=== PATIENT | female | born 1995 | race Hispanic/Latino ===

== ENCOUNTER 2018-04-02 14:44 | Emergency (ER) | payer SELFPAY ==
--- NOTE | 2018-04-02 16:16 | ER ---
Nurse's Notes [facility] Name: Joya Cortez Age: 23 yrs Sex: Female : 1995 Arrival Date: 04/02/2018 Time: 14:46 Bed Treatment Private MD: None, None Diagnosis: Acute pharyngitis Presentation: 04/02 14:55 Presenting complaint: Patient states: Left ear pain, sore throat for 2-3 days now, sg reports feeling ill but denies N/V/D/F. Transition of care: patient was not received from another setting of care. Onset of symptoms was April 02, 2018. Risk Assessment: Do you want to hurt yourself or someone else? Patient reports no desire to harm self or others. Initial Sepsis Screen: Does the patient meet any 2 criteria? No. Patient's initial sepsis screen is negative. Does the patient have a suspected source of infection? No. Patient's initial sepsis screen is negative. Care prior to arrival: None. 14:55 Method Of Arrival: Ambulatory sg 14:55 Acuity: MICHELLE 4 sg Triage Assessment: 16:34 General: Appears in no apparent distress. Behavior is calm, cooperative. 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 - Social history:: Smoking status: Patient/guardian denies using tobacco. - Ebola Screening: : Patient negative for fever greater than or equal to 101.5 degrees Fahrenheit, and additional compatible Ebola Virus Disease symptoms Patient denies exposure to infectious person Patient denies travel to an Ebola-affected area in the 21 days before illness onset No symptoms or risks identified at this time. Screenin:30 Abuse screen: Denies threats or abuse. Denies injuries from another. Nutritional iw screening: No deficits noted. Tuberculosis screening: No symptoms or risk factors identified. Fall Risk None identified. Assessment: 15:30 General: Appears in no apparent distress. Behavior is calm, cooperative. Pain: iw Complains of pain in throat. Neuro: Level of Consciousness is awake, alert, obeys commands, Oriented to person, place, time, situation. Cardiovascular: Patient's skin is warm and dry. Respiratory: Airway is patent Respiratory effort is even, unlabored, Breath sounds are clear bilaterally. EENT: Throat is reddened bilaterally. Derm: Skin is intact, is healthy with good turgor. Musculoskeletal: Range of motion: intact in all extremities. Vital Signs: 14:56 Pulse 87; Resp 16 S; Pulse Ox 98% on R/A; Weight 106.59 kg (R); Height 5 ft. 6 in. sg (167.64 cm) (R); Pain 6/10; 14:56 Body Mass Index 37.93 (106.59 kg, 167.64 cm) sg ED Course: 14:46 Patient arrived in ED. sb2 14:47 None, None is Private Physician. sb2 14:51 Nenita Hinojosa, RN is Primary Nurse. iw 14:55 Arm band placed on. sg 14:56 Triage completed. sg 14:56 Kay Ling FNP-C is [facility]. kb 14:56 Tj Isbell MD is Attending Physician. kb 15:35 Patient has correct armband on for positive identification. iw 16:33 No provider procedures requiring assistance completed. Patient did not have IV access iw during this emergency room visit. Administered Medications: No medications were administered Outcome: 16:15 Discharge ordered by MD. kb 16:33 Discharged to home ambulatory. iw 16:33 Condition: good 16:33 Discharge instructions given to patient, Instructed on discharge instructions, follow up and referral plans. medication usage, Demonstrated understanding of instructions, follow-up care, medications. 16:34 Patient left the ED. iw Signatures: Kay Ling FNP-C FNP-Feliberto Villanueva, RN RN Nenita Hinojosa, RN RN iw Yun Peña sb2 Corrections: (The following items were deleted from the chart) 19:29 16:33 Discharge instructions given to patient, Instructed on discharge instructions, iw follow up and referral plans. medication usage, Demonstrated understanding of instructions, follow-up care, medications, Prescriptions given X 1, iw
--- NOTE | 2018-04-02 16:16 | EDPHYS ---
Physician Documentation [facility] Name: Joya Cortez Age: 23 yrs Sex: Female : 1995 Arrival Date: 04/02/2018 Time: 14:46 Bed Treatment Private MD: None, None ED Physician Tj Isbell HPI: 04/02 15:29 This 23 yrs old Female presents to ER via Ambulatory with complaints of Sore kb Throat, Ear Pain. 15:29 The patient presents with sore throat. The patient describes throat pain as constant. kb Onset: The symptoms/episode began/occurred 3 day(s) ago. Severity of symptoms: At their worst the symptoms were moderate, in the emergency department the symptoms are unchanged. Modifying factors: The symptoms are alleviated by nothing, the symptoms are aggravated by swallowing, Patient's oral intake status: good. Associated signs and symptoms: Pertinent positives: fever, flu-like symptoms, malaise, Sore throat. The patient has not experienced similar symptoms in the past. The patient has not recently seen a physician. 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 - Social history:: Smoking status: Patient/guardian denies using tobacco. - Ebola Screening: : Patient negative for fever greater than or equal to 101.5 degrees Fahrenheit, and additional compatible Ebola Virus Disease symptoms Patient denies exposure to infectious person Patient denies travel to an Ebola-affected area in the 21 days before illness onset No symptoms or risks identified at this time. ROS: 15:28 Cardiovascular: Negative for chest pain, palpitations, and edema, Respiratory: Negative kb for shortness of breath, cough, wheezing, and pleuritic chest pain, Abdomen/GI: Negative for abdominal pain, nausea, vomiting, diarrhea, and constipation, Back: Negative for injury and pain, : Negative for injury, bleeding, discharge, and swelling, MS/Extremity: Negative for injury and deformity, Skin: Negative for injury, rash, and discoloration, Neuro: Negative for headache, weakness, numbness, tingling, and seizure. 15:28 Constitutional: Positive for chills, fever, Negative for body aches, fatigue, malaise, poor PO intake, weight loss. 15:28 ENT: Positive for ear pain, sore throat. Exam: 15:28 Constitutional: This is a well developed, well nourished patient who is awake, alert, kb and in no acute distress. Head/Face: Normocephalic, atraumatic. Chest/axilla: Normal chest wall appearance and motion. Nontender with no deformity. No lesions are appreciated. Cardiovascular: Regular rate and rhythm with a normal S1 and S2. No gallops, murmurs, or rubs. Normal PMI, no JVD. No pulse deficits. Respiratory: Lungs have equal breath sounds bilaterally, clear to auscultation and percussion. No rales, rhonchi or wheezes noted. No increased work of breathing, no retractions or nasal flaring. Abdomen/GI: Soft, non-tender, with normal bowel sounds. No distension or tympany. No guarding or rebound. No evidence of tenderness throughout. Skin: Warm, dry with normal turgor. Normal color with no rashes, no lesions, and no evidence of cellulitis. MS/ Extremity: Pulses equal, no cyanosis. Neurovascular intact. Full, normal range of motion. Neuro: Awake and alert, GCS 15, oriented to person, place, time, and situation. Cranial nerves II-XII grossly intact. Motor strength 5/5 in all extremities. Sensory grossly intact. Cerebellar exam normal. Normal gait. 15:28 ENT: External ear(s): are unremarkable, Ear canal(s): are normal, TM's: are normal, Nose: is normal, Mouth: is normal, Posterior pharynx: Airway: normal, no evidence of obstruction, Tonsils: bilaterally enlarged, with erythema, Uvula: normal, midline, swelling, that is moderate, erythema, that is moderate, exudate, is not appreciated. Vital Signs: 14:56 Pulse 87; Resp 16 S; Pulse Ox 98% on R/A; Weight 106.59 kg (R); Height 5 ft. 6 in. sg (167.64 cm) (R); Pain 6/10; 14:56 Body Mass Index 37.93 (106.59 kg, 167.64 cm) MDM: 14:56 Patient medically screened. kb 15:28 Data reviewed: vital signs, nurses notes. Data interpreted: Pulse oximetry: on room air kb is 98 %. Interpretation: normal. 16:15 Counseling: I had a detailed discussion with the patient and/or guardian regarding: the kb historical points, exam findings, and any diagnostic results supporting the discharge/admit diagnosis, lab results, the need for outpatient follow up, a family practitioner, to return to the emergency department if symptoms worsen or persist or if there are any questions or concerns that arise at home. 04/02 15:06 Order name: Flu; Complete Time: 16:13 kb 04/02 15:06 Order name: Strep; Complete Time: 15:39 kb 04/02 15:39 Order name: Throat Culture EDMS Administered Medications: No medications were administered Disposition: 04/03 07:24 Co-signature as Attending Physician, Tj Isbell MD I agree with the assessment and katherin plan of care. Disposition: 04/02/18 16:15 Discharged to Home. Impression: Acute pharyngitis. - Condition is Stable. - Discharge Instructions: Pharyngitis, [id number]. - Medication Reconciliation Form, Thank You Letter, Antibiotic Education, Prescription Opioid Use, Work release form, Family Work Release form. - Follow up: Emergency Department; When: As needed; Reason: Worsening of condition. Follow up: Private Physician; When: 2 - 3 days; Reason: Recheck today's complaints, Continuance of care, Re-evaluation by your physician. Signatures: Dispatcher [employer] EDNE Kay Ling, MOHAMUD-C ACETYLENE TORCH BURNER-Feliberto Villanueva, Tj Limon RN, MD MD cha Williams, Irene, RN RN iw Corrections: (The following items were deleted from the chart) 04/02 16:34 16:15 04/02/2018 16:15 Discharged to Home. Impression: Acute pharyngitis. Condition is iw Stable. Forms are Medication Reconciliation Form, Thank You Letter, Antibiotic Education, Prescription Opioid Use. Follow up: Emergency Department; When: As needed; Reason: Worsening of condition. Follow up: Private Physician; When: 2 - 3 days; Reason: Recheck today's complaints, Continuance of care, Re-evaluation by your physician. kb
[2018-04-02 16:38] VITALS: O2SAT 98
== END 2018-04-02 16:34 | disposition home or self-care (01) ==
LOC: ER 14:44
DX: J02.9 Acute pharyngitis, unspecified (principal); Z91.018 Allergy to other foods
CPT/HCPCS: 87070; 87081; 87804; 99281

== ENCOUNTER 2019-06-18 09:25 | Emergency (ER) | payer SELFPAY ==
[2019-06-18 11:23] LABS: Absolute Lymphocytes (CBC) 1.7 K/uL (0.7-4.9); Basophils % 0.5 % (0-1.3); Lymphocytes % 19.4 % (15.3-44.8); MPV 9.7 fL (7.6-11.3); RBC Red Blood Cell Count 4.53 M/uL (3.86-4.86)
[2019-06-18 11:24] LABS: Urine Bacteria >50 /HPF (<20); Urine Culture Reflex Order NOT NEEDED; Urine Mucus HEAVY /HPF (NONE SEEN); Urine RBC <5 /HPF (NONE SEEN)
--- NOTE | 2019-06-18 11:27 | RAD REPORT ---
EXAM DESCRIPTION: US - Transvaginal OB - 06/18/2019 11:20 am CLINICAL HISTORY: Abd cramping, ;Vaginal bleeding COMPARISON: OB Complete dated 05/12/2016 FINDINGS: A single gestational sac is seen within the uterus. The shape of the sac is within normal limits for gestational age. Within the sac is a single pole with crown-rump length of 9 mm, cor relating to estimated gestational age of 6 weeks 6 days. Estimated date of delivery is 02/05/2020. Heart rate is 127 BPM. The placenta is not yet developed due to early gestational age. Several small cystic areas along the inferior margin of the sac probably represents small subchorionic bleed, measuring about 1 cm in tota lity. The maternal adnexa and ovaries are within normal limits. Normal Doppler blood flow was demonstrated to both ovaries. IMPRESSION: Single live early intrauterine gestation with estimated gestational age of 6 weeks 6 day s, LUCA 02/05/2020. Several cystic areas along the inferior margin of the sac likely represent small subchorionic bleeds.
[2019-06-18 11:37] LABS: BUN Blood Urea Nitrogen 7 mg/dL (7-18); Bicarbonate 25 mmol/L (21-32); Glucose Level 98 mg/dL (74-106); HCG, Quantitative 50394 mIU/mL (1-3); Potassium 3.9 mmol/L (3.5-5.1); Sodium Level 137 mmol/L (136-145)
--- NOTE | 2019-06-18 12:29 | EDPHYS ---
Physician Documentation [facility] Name: Joya Cortez Age: 24 yrs Sex: Female : 1995 Arrival Date: 06/18/2019 Time: 09:27 Bed 7 Private MD: ED Physician Gaston Tejada HPI: 06/18 11:48 This 24 yrs old Female presents to ER via Ambulatory with complaints of rn Abdominal Pain, Vaginal Bleeding, + Preg <12wks. 11:48 The patient presents to the emergency department with abdominal pain, vaginal bleeding. rn The estimated gestational age is 6 weeks. Previous pregnancies: in previous pregnancies patient has had no complications. The patient has not experienced similar symptoms in the past. Reports lower abd cramping, vaginal spotting, no urinary symptoms, no trauma. reports blood type O+. . 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 - Social history:: Smoking status: Patient/guardian denies using tobacco. - Ebola Screening: : Patient denies exposure to infectious person Patient denies travel to an Ebola-affected area in the 21 days before illness onset. - Family history:: not pertinent. - Hospitalizations: : No recent hospitalization is reported. ROS: 11:48 Constitutional: Negative for fever, chills, and weight loss, Eyes: Negative for injury, rn pain, redness, and discharge, Neck: Negative for injury, pain, and swelling, Cardiovascular: Negative for chest pain, palpitations, and edema, Respiratory: Negative for shortness of breath, cough, wheezing, and pleuritic chest pain, Abdomen/GI: Negative for nausea, vomiting, diarrhea, and constipation, MS/Extremity: Negative for injury and deformity, Skin: Negative for injury, rash, and discoloration, Neuro: Negative for headache, weakness, numbness, tingling, and seizure. Exam: 11:48 Constitutional: This is a well developed, well nourished patient who is awake, alert, rn and in no acute distress. Head/Face: Normocephalic, atraumatic. Cardiovascular: Regular rate and rhythm. No pulse deficits. Respiratory: No increased work of breathing, no retractions or nasal flaring. Abdomen/GI: soft, non-tender Skin: Warm, dry with normal turgor. Normal color with no rashes, no lesions, and no evidence of cellulitis. MS/ Extremity: Pulses equal, no cyanosis. Neurovascular intact. Full, normal range of motion. Equal circumference. Neuro: Awake and alert, GCS 15, oriented to person, place, time, and situation. Cranial nerves II-XII grossly intact. Motor strength 5/5 in all extremities. Sensory grossly intact. Cerebellar exam normal. Normal gait. Vital Signs: 09:46 BP 116 / 63; Pulse 70; Resp 16; Temp 97.2(TE); Pulse Ox 100% on R/A; Height 5 ft. 7 in. ss (170.18 cm); Pain 6/10; 10:36 BP 124 / 71; Pulse 59; Resp 16; Pulse Ox 99% ; sv 11:45 BP 115 / 57; Pulse 60; Resp 16; Pulse Ox 100% ; sv 12:45 BP 111 / 60; Pulse 61; Resp 16; Pulse Ox 99% ; sv MDM: 10:30 Patient medically screened. rn 11:48 Differential diagnosis: ectopic . Data reviewed: vital signs, nurses notes, rn telemetry test result(s), radiologic studies, and as a result, I will discharge patient. Counseling: I had a detailed discussion with the patient and/or guardian regarding: the historical points, exam findings, and any diagnostic results supporting the discharge/admit diagnosis, lab results, radiology results, the need for outpatient follow up, to return to the emergency department if symptoms worsen or persist or if there are any questions or concerns that arise at home. Special discussion: I discussed with the patient/guardian in detail that at this point there is no indication for admission to the hospital. It is understood, however, that if the symptoms persist or worsen the patient needs to return immediately for re-evaluation. Based on the history and exam findings, there is no indication for further emergent testing or inpatient evaluation. I discussed with the patient/guardian the need to see the OB Gyne specialist for further evaluation of the symptoms. ED course: + IUP with estimated age 6w6d, + bacteriuria, will dc home with close OB f/u and macrobid. . 06/18 10:34 Order name: Quantitative Hcg; Complete Time: 11:46 rn 06/18 10:34 Order name: Abo/rh Typing; Complete Time: 12:26 rn 06/18 10:34 Order name: Basic Metabolic Panel; Complete Time: 11:46 rn 06/18 10:34 Order name: CBC with Diff; Complete Time: 11:46 rn 06/18 10:42 Order name: Urine Microscopic Only; Complete Time: 11:46 rn 06/18 10:52 Order name: Urine Dipstick--Ancillary (enter results) bd 06/18 10:34 Order name: Urine Test (obtain specimen); Complete Time: 10:57 rn 06/18 10:34 Order name: IV Saline Lock; Complete Time: 10:57 rn 06/18 10:34 Order name: Labs collected and sent; Complete Time: 10:57 rn 06/18 10:34 Order name: NPO; Complete Time: 10:57 rn 06/18 10:34 Order name: Urine Dipstick-Ancillary (obtain specimen); Complete Time: 10:57 rn 06/18 10:42 Order name: US Transvaginal Ob; Complete Time: 11:46 rn 06/18 10:52 Order name: Urine --Ancillary (enter results) bd Administered Medications: No medications were administered Disposition: 06/18/19 12:28 Discharged to Home. Impression: Threatened , Urinary tract infection, site not specified. - Condition is Stable. - Discharge Instructions: Threatened Miscarriage, Urinary Tract Infection, Adult, Vaginal Bleeding During , First Trimester, Pelvic Rest. - Prescriptions for Macrobid 100 mg Oral Capsule - take 1 capsule by ORAL route every 12 hours for 7 days; 14 capsule. - Work release form, Medication Reconciliation Form, Thank You Letter, Antibiotic Education, Prescription Opioid Use form. - Follow up: Private Physician; When: As needed; Reason: Recheck today's complaints, Re-evaluation by your physician. - Problem is new. - Symptoms have improved. Signatures: Dispatcher [employer] Shaila Hall RN RN sv Nieto, Roman, MD MD rn Smirch, Shelby, RN RN ss Corrections: (The following items were deleted from the chart) 13:03 12:28 06/18/2019 12:28 Discharged to Home. Impression: Threatened ; Urinary sv tract infection, site not specified. Condition is Stable. Forms are Medication Reconciliation Form, Thank You Letter, Antibiotic Education, Prescription Opioid Use. Follow up: Private Physician; When: As needed; Reason: Recheck today's complaints, Re-evaluation by your physician. Problem is new. Symptoms have improved. rn
--- NOTE | 2019-06-18 12:29 | ER ---
Nurse's Notes [facility] Name: Joya Cortez Age: 24 yrs Sex: Female : 1995 Arrival Date: 06/18/2019 Time: 09:27 Bed 7 Private MD: Diagnosis: Threatened ;Urinary tract infection, site not specified Presentation: 06/18 09:45 Presenting complaint: Patient states: "I think I'm 7 weeks and 6 days . I ss started spotting and having cramps this morning.". Transition of care: patient was not received from another setting of care. Onset of symptoms was June 18, 2019. Risk Assessment: Do you want to hurt yourself or someone else? Patient reports no desire to harm self or others. Initial Sepsis Screen: Does the patient meet any 2 criteria? No. Patient's initial sepsis screen is negative. Does the patient have a suspected source of infection? No. Patient's initial sepsis screen is negative. Care prior to arrival: None. 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 - Social history:: Smoking status: Patient/guardian denies using tobacco. - Ebola Screening: : Patient denies exposure to infectious person Patient denies travel to an Ebola-affected area in the 21 days before illness onset. - Family history:: not pertinent. - Hospitalizations: : No recent hospitalization is reported. Screenin:35 Abuse screen: Denies threats or abuse. Denies injuries from another. Nutritional sv screening: No deficits noted. Tuberculosis screening: No symptoms or risk factors identified. Fall Risk None identified. Assessment: 10:40 General: Appears in no apparent distress. comfortable, well developed, Behavior is sv calm, cooperative, appropriate for age. Pain: Complains of pain in right lower quadrant and left lower quadrant. Neuro: Level of Consciousness is awake, alert, obeys commands, Oriented to person, place, time, situation, Moves all extremities. Full function Gait is steady, Speech is normal. Respiratory: Airway is patent Respiratory effort is even, unlabored, Respiratory pattern is regular, symmetrical. GI: Abdomen is round non-distended, Abd is soft X 4 quads Abdomen is tender to palpation in right lower quadrant and left lower quadrant. : Reports vaginal bleeding that is spotty. Derm: Skin is pink, warm \\T\\ dry. 12:00 Reassessment: Patient appears in no apparent distress at this time. No changes from sv previously documented assessment. Patient and/or family updated on plan of care and expected duration. Pain level reassessed. Patient is alert, oriented x 3, equal unlabored respirations, skin warm/dry/pink. 13:00 Reassessment: Patient appears in no apparent distress at this time. No changes from sv previously documented assessment. Patient and/or family updated on plan of care and expected duration. Pain level reassessed. Patient is alert, oriented x 3, equal unlabored respirations, skin warm/dry/pink. Vital Signs: 09:46 BP 116 / 63; Pulse 70; Resp 16; Temp 97.2(TE); Pulse Ox 100% on R/A; Height 5 ft. 7 in. ss (170.18 cm); Pain 6/10; 10:36 BP 124 / 71; Pulse 59; Resp 16; Pulse Ox 99% ; sv 11:45 BP 115 / 57; Pulse 60; Resp 16; Pulse Ox 100% ; sv 12:45 BP 111 / 60; Pulse 61; Resp 16; Pulse Ox 99% ; sv ED Course: 09:27 Patient arrived in ED. rg4 09:46 Triage completed. ss 09:46 Arm band placed on right wrist. ss 10:27 Shaila Sears, RN is Primary Nurse. sv 10:30 Gaston Tejada MD is Attending Physician. rn 10:35 Patient has correct armband on for positive identification. Placed in gown. Bed in low sv position. Call light in reach. Pulse ox on. NIBP on. Door closed. Warm blanket given. Head of bed elevated. 10:35 Urine collected: clean catch specimen. sv 10:51 Inserted saline lock: 22 gauge in left antecubital area, using aseptic technique. kj1 10:51 Initial lab(s) drawn, by me, sent to lab. kj1 10:58 Awaiting lab results, Awaiting: Ultrasound. sv 11:23 US Transvaginal Ob In Process Unspecified. EDMS 13:02 No provider procedures requiring assistance completed. IV discontinued, intact, sv bleeding controlled, No redness/swelling at site. Pressure dressing applied. Administered Medications: No medications were administered Outcome: 12:28 Discharge ordered by . rn 13:03 Discharged to home ambulatory. sv 13:03 Condition: stable 13:03 Discharge instructions given to patient, Instructed on discharge instructions, follow up and referral plans. medication usage, pelvic rest Demonstrated understanding of instructions, follow-up care, medications, pelvic rest Prescriptions given X 1. 13:03 Patient left the ED. sv Signatures: Dispatcher [employer] [facility] Shaila Sears RN Gaston Jarvis MD MD rn Smirch, Shelby, RN RN ss Garcia, Rubi rg4 Dominique Ling kj1 Corrections: (The following items were deleted from the chart) 10:53 10:51 Initial lab(s) drawn, by me, sent to lab. held in ED. kj1 kj1
[2019-06-18 13:18] VITALS: TEMP 97.2
[2019-06-18 13:22] VITALS: BP 111/60; O2SAT 99
[2019-06-18 16:09] LABS: Urine Blood NEGATIVE (NEG); Urine Glucose NEGATIVE (NEG); Urine Protein NEGATIVE (NEG)
== END 2019-06-18 13:03 | disposition home or self-care (01) ==
LOC: ER 09:25
DX: O20.0 Threatened abortion (principal); O23.41 Unspecified infection of urinary tract in pregnancy, first trimester; Z3A.01 Less than 8 weeks gestation of pregnancy; Z91.018 Allergy to other foods
CPT/HCPCS: 36415; 76817; 80048; 81003; 81015; 81025; 84702; 85025; 86900; 86901; 99284

== ENCOUNTER 2019-10-23 13:38 | Emergency (ER) | payer OTHER ==
[2019-10-23 16:09] VITALS: TEMP 98.3
[2019-10-23 16:11] VITALS: O2SAT 100
[2019-10-23 16:12] VITALS: BP 108/63
== END 2019-10-23 16:03 | disposition home or self-care (01) ==
LOC: ER 13:38
DX: O23.42 Unspecified infection of urinary tract in pregnancy, second trimester (principal); O26.22 Pregnancy care for patient with recurrent pregnancy loss, second trimester; Z3A.24 24 weeks gestation of pregnancy; Z91.018 Allergy to other foods
CPT/HCPCS: 96365; 96361; 87088; 85025; 87086; 80048; 36415; 86900; 81025; 86901; 80076; 81003; 83690; 96375; 99284; J0696; J7030; J2405

== ENCOUNTER 2020-01-06 15:51 | Emergency (ER) | payer BC, OTHER ==
--- NOTE | 2020-01-06 16:23 | ER ---
Nurse's Notes [facility] Name: Joya Cortez Age: 24 yrs Sex: Female : 1995 Arrival Date: 01/06/2020 Time: 15:53 Bed 5 Private MD: Diagnosis: Anxiety disorder, unspecified;Nausea and vomiting Presentation: 01/05 16:00 Chief complaint: Patient states: I have been having panic attacks and throwing up since ca1 last night. I was here at L\T\D last night because I was having contractions, I was discharged then started having panic attacks. Coronavirus screen: Proceed with normal triage. Patient denies a cough. Patient denies shortness of breath or difficulty breathing. Patient denies measured and/or subjective temperature greater than 100.4F prior to today's visit. Patient denies travel on a cruise ship or to a country the [facility] currently lists as an affected area. Patient denies contact with known and/or suspected case of COVID-19. Ebola Screen: Patient negative for fever greater than or equal to 101.5 degrees Fahrenheit, and additional compatible Ebola Virus Disease symptoms Patient denies exposure to infectious person. Patient denies travel to an Ebola-affected area in the 21 days before illness onset. No symptoms or risks identified at this time. Initial Sepsis Screen: Does the patient meet any 2 criteria? No. Patient's initial sepsis screen is negative. Does the patient have a suspected source of infection? No. Patient's initial sepsis screen is negative. Risk Assessment: Do you want to hurt yourself or someone else? Patient reports no desire to harm self or others. Onset of symptoms was January 06, 2020. 16:00 Method Of Arrival: Ambulatory ca1 16:00 Acuity: MICHELLE 3 ca1 Triage Assessment: 16:00 General: Appears in no apparent distress. comfortable, obese, Behavior is cooperative, bp appropriate for age, anxious. Pain: Denies pain. EENT: No deficits noted. Neuro: No deficits noted. Cardiovascular: No deficits noted. Respiratory: No deficits noted. GI: No signs and/or symptoms were reported involving the gastrointestinal system. : Reports cramping. Derm: No deficits noted. Musculoskeletal: No deficits noted. 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 - Social history:: Smoking status: Patient denies any tobacco usage or history of. Screenin:00 Abuse screen: Denies threats or abuse. Denies injuries from another. Nutritional bp screening: No deficits noted. Tuberculosis screening: No symptoms or risk factors identified. Fall Risk None identified. Assessment: 16:00 General: SEE TRIAGE NOTE. bp 16:59 Reassessment: NO VOMITING OR S/S ANXIETY AT THIS TIME. bp 18:42 Reassessment: PT D/C HOME AMBULATORY WITH FAMILY, DX WITH ANXIETY D/O AND bp NAUSEA/VOMITING. Vital Signs: 16:00 BP 105 / 61; Pulse 87; Resp 19 S; Temp 97.7(TE); Pulse Ox 97% on R/A; Weight 97.98 kg ca1 (R); Height 5 ft. 7 in. (170.18 cm) (R); 17:00 BP 115 / 63; Pulse 85; Resp 17; Pulse Ox 97% ; bp 18:30 BP 111 / 65; Pulse 75; Resp 16; Temp 98; Pulse Ox 98% ; bp 16:00 Body Mass Index 33.83 (97.98 kg, 170.18 cm) ca1 Vitals: 16:58 Heart Tones 165. bp ED Course: 15:53 Patient arrived in ED. as 16:00 Patient has correct armband on for positive identification. Bed in low position. Call bp light in reach. Side rails up X2. 16:03 Triage completed. ca1 16:04 Arm band placed on right wrist. ca1 16:12 Carmela [facility] F[facility]-C [facility]. snw 16:12 Ke Walton MD is Attending Physician. snw 16:18 Landon Porter, BENJAMIN is Primary Nurse. bp 18:44 No provider procedures requiring assistance completed. Patient did not have IV access bp during this emergency room visit. Administered Medications: 16:30 Drug: Phenergan 25 mg Route: PO; bp 16:57 Follow up: Response: No adverse reaction; Nausea is decreased bp Outcome: 16:23 Discharge ordered by MD. richardson 18:44 Discharged to home ambulatory, with family. bp 18:44 Condition: stable 18:44 Discharge instructions given to patient, Instructed on discharge instructions, follow up and referral plans. medication usage, Demonstrated understanding of instructions, follow-up care, medications, Prescriptions given X 1. 18:44 Patient left the ED. bp Signatures: Carmela Garcia, DIAL REFINISHER-C DIAL REFINISHER-Karina Oates Brian, RN RN bp AcobParis RN RN ca1
--- NOTE | 2020-01-06 16:23 | EDPHYS ---
Physician Documentation [facility] Name: Joya Cortez Age: 24 yrs Sex: Female : 1995 Arrival Date: 01/06/2020 Time: 15:53 Bed 5 Private MD: ED Physician Ke Walton HPI: 01/05 16:34 This 24 yrs old Female presents to ER via Ambulatory with complaints of snw Anxiety - 35 wks preg. 16:34 The patient presents to the emergency department with anxiety, "over everything". snw Onset: The symptoms/episode began/occurred couple of weeks culminating last pm.. Past psychiatric history: Prior diagnosis: anxiety. Associated signs and symptoms: Pertinent positives; nausea, vomiting. Severity of symptoms: At their worst the symptoms were moderate severe. The patient has experienced similar episodes in the past. The patient has been recently seen by a physician: pt was in L\\T\\D yesterday and checked. No complications to per report. 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 - Social history:: Smoking status: Patient denies any tobacco usage or history of. ROS: 16:34 Eyes: Negative for injury, pain, redness, and discharge, ENT: Negative for injury, snw pain, and discharge, Neck: Negative for injury, pain, and swelling, Cardiovascular: Negative for chest pain, palpitations, and edema, Respiratory: Negative for shortness of breath, cough, wheezing, and pleuritic chest pain. 16:34 Back: Negative for injury and pain, MS/Extremity: Negative for injury and deformity, Skin: Negative for injury, rash, and discoloration, Neuro: Negative for headache, weakness, numbness, tingling, and seizure. 16:34 Constitutional: Positive for anxiety, panic attacks, "it's been a long couple of weeks". 16:34 Abdomen/GI: Positive for nausea and vomiting. 16:34 : Negative for urinary symptoms, urinary frequency, small amounts, hematuria, pelvic pain, burning with urination, vaginal bleeding, vaginal discharge, vaginal itching. 16:34 Psych: Positive for anxiety. Exam: 16:33 Constitutional: This is a well developed, well nourished patient who is awake, alert, snw and in no acute distress. Head/Face: Normocephalic, atraumatic. Eyes: Pupils equal round and reactive to light, extra-ocular motions intact. Lids and lashes normal. Conjunctiva and sclera are non-icteric and not injected. Cornea within normal limits. Periorbital areas with no swelling, redness, or edema. ENT: Nares patent. No nasal discharge, no septal abnormalities noted. Tympanic membranes are normal and external auditory canals are clear. Oropharynx with no redness, swelling, or masses, exudates, or evidence of obstruction, uvula midline. Mucous membranes moist. Neck: Trachea midline, no thyromegaly or masses palpated, and no cervical lymphadenopathy. Supple, full range of motion without nuchal rigidity, or vertebral point tenderness. No Meningismus. Chest/axilla: Normal chest wall appearance and motion. Nontender with no deformity. No lesions are appreciated. Cardiovascular: Regular rate and rhythm with a normal S1 and S2. No gallops, murmurs, or rubs. Normal PMI, no JVD. No pulse deficits. Respiratory: Lungs have equal breath sounds bilaterally, clear to auscultation and percussion. No rales, rhonchi or wheezes noted. No increased work of breathing, no retractions or nasal flaring. 16:33 Back: No spinal tenderness. No costovertebral tenderness. Full range of motion. Skin: Warm, dry with normal turgor. Normal color with no rashes, no lesions, and no evidence of cellulitis. MS/ Extremity: Pulses equal, no cyanosis. Neurovascular intact. Full, normal range of motion. Neuro: Awake and alert, GCS 15, oriented to person, place, time, and situation. Cranial nerves II-XII grossly intact. Motor strength 5/5 in all extremities. Sensory grossly intact. Cerebellar exam normal. Normal gait. 16:33 Abdomen/GI: Inspection: gravid appearance, is noted, obese Bowel sounds: normal, Palpation: abdomen is soft and non-tender, in all quadrants. 16:33 Psych: Behavior/mood is pleasant, cooperative, anxious, Affect is calm, Patient has no thoughts/intents to harm self or others. Memory is normal. Vital Signs: 16:00 BP 105 / 61; Pulse 87; Resp 19 S; Temp 97.7(TE); Pulse Ox 97% on R/A; Weight 97.98 kg ca1 (R); Height 5 ft. 7 in. (170.18 cm) (R); 17:00 BP 115 / 63; Pulse 85; Resp 17; Pulse Ox 97% ; bp 18:30 BP 111 / 65; Pulse 75; Resp 16; Temp 98; Pulse Ox 98% ; bp 16:00 Body Mass Index 33.83 (97.98 kg, 170.18 cm) ca1 MDM: 16:19 Patient medically screened. snw 16:32 Data reviewed: vital signs, nurses notes. Data interpreted: Pulse oximetry: on room air snw is 97 %. Interpretation: normal. Counseling: I had a detailed discussion with the patient and/or guardian regarding: the historical points, exam findings, and any diagnostic results supporting the discharge/admit diagnosis, the need for outpatient follow up, to return to the emergency department if symptoms worsen or persist or if there are any questions or concerns that arise at home. Special discussion: Based on the history and exam findings, there is no indication for further emergent testing or inpatient evaluation. I discussed with the patient/guardian the need to see the OB Gyne specialist for further evaluation of the symptoms. I discussed with the patient/guardian the need to see the primary care provider for further evaluation of the symptoms. I discussed with the patient/guardian the need to see the psychiatrist for further evaluation of the symptoms. 01/05 16:13 Order name: Urine Culture [facility] 01/05 16:13 Order name: Urine Microscopic Only; Complete Time: 18:18 snw 01/05 16:13 Order name: Urine Dipstick-Ancillary (obtain specimen); Complete Time: 16:57 snw 01/05 16:58 Order name: Urine Dipstick--Ancillary (enter results); Complete Time: 18:18 bd 01/05 16:58 Order name: Urine --Ancillary (enter results); Complete Time: 18:18 bd 01/05 16:13 Order name: FHT's; Complete Time: 16:57 snw Administered Medications: 16:30 Drug: Phenergan 25 mg Route: PO; bp 16:57 Follow up: Response: No adverse reaction; Nausea is decreased bp Disposition: 18:58 Co-signature as Attending Physician, Ke Walton MD. ma2 Disposition: 01/06/20 16:23 Discharged to Home. Impression: Anxiety disorder, unspecified, Nausea and vomiting. - Condition is Stable. - Discharge Instructions: Panic Attacks, Nausea and Vomiting, Adult, Generalized Anxiety Disorder, Rehydration, Adult. - Prescriptions for promethazine 25 mg Oral Tablet - take 1 tablet by ORAL route every 6 hours As needed; 10 tablet. - Medication Reconciliation Form, Thank You Letter, Antibiotic Education, Prescription Opioid Use, Work release form form. - Follow up: Emergency Department; When: As needed; Reason: Worsening of condition. Follow up: Private Physician; When: 2 - 3 days; Reason: Recheck today's complaints, Continuance of care, Re-evaluation by your physician. Signatures: Dispatcher [employer] EDOR Carmela Garcia, MOHAMUD-C PURCHASING/RECEIVING-Csnw Landon Porter, BENJAMIN RN Ke Gurrola MD MD ma2 Paris Hernandez RN RN ca1 Corrections: (The following items were deleted from the chart) 18:44 16:23 01/06/2020 16:23 Discharged to Home. Impression: Anxiety disorder, unspecified; bp Nausea and vomiting. Condition is Stable. Forms are Medication Reconciliation Form, Thank You Letter, Antibiotic Education, Prescription Opioid Use. Follow up: Emergency Department; When: As needed; Reason: Worsening of condition. Follow up: Private Physician; When: 2 - 3 days; Reason: Recheck today's complaints, Continuance of care, Re-evaluation by your physician. snw
[2020-01-06] MEDS ORDERED: PROMETHAZINE 25 MG TABLET ONE (16:48)
[2020-01-06 17:58] LABS: Urine Blood NEGATIVE (NEG); Urine Glucose NEGATIVE (NEG); Urine Protein NEGATIVE (NEG); Urine Specific Gravity 1.025 (1.005-1.030)
[2020-01-06 18:00] LABS: Urine Bacteria <20 /HPF (<20); Urine Culture Reflex Order REFLEXED; Urine Mucus 1+ /HPF (NONE SEEN); Urine RBC <5 /HPF (NONE SEEN)
[2020-01-06 18:56] VITALS: BP 111/65; TEMP 98; O2SAT 98
== END 2020-01-06 18:44 | disposition home or self-care (01) ==
LOC: ER 15:51
DX: O99.343 Other mental disorders complicating pregnancy, third trimester (principal); F41.9 Anxiety disorder, unspecified; Z3A.35 35 weeks gestation of pregnancy; Z91.018 Allergy to other foods
CPT/HCPCS: 81003; 81015; 81025; 87086; 87088; 99283; Q0169

== ENCOUNTER 2020-01-27 15:43 | Inpatient (IN) | payer BC, OTHER ==
[2020-01-28] MEDS ORDERED: CEFAZOLIN/SWI 2gm 2 GM/20 ML SYR IVP SCH (15:15)
[2020-01-28 15:37] LABS: Urine Appearance CLEAR; Urine Bilirubin NEGATIVE (NEG); Urine Blood NEGATIVE (NEG); Urine Color YELLOW; Urine Glucose NEGATIVE (NEG); Urine Protein NEGATIVE (NEG); Urine Urobilinogen 0.2 mg/dL (0.2-1.0)
[2020-01-28 15:43] LABS: Absolute Lymphocytes (CBC) 1.1 K/uL (0.7-4.9); Basophils % 0.6 % (0-1.3); Hematocrit 40.3 % (36.0-45.0); Lymphocytes % 14.3 % (15.3-44.8); MPV 9.1 fL (7.6-11.3); RBC Red Blood Cell Count 4.76 M/uL (3.86-4.86)
[2020-01-28 15:48] LABS: Protime INR 0.88
[2020-01-28 15:53] LABS: Urine Bacteria <20 /HPF (<20); Urine Culture Reflex Order NOT NEEDED; Urine RBC <5 /HPF (NONE SEEN)
[2020-01-28] MEDS ORDERED: CEFAZOLIN 2 GM in NA CHLORIDE 0.9% 100 ML IVPB SCH (16:00)
[2020-01-29] MEDS ORDERED: Ringers Lactate 1,000 ML IV PRN (04:10)
[2020-01-29] MEDS ORDERED: NA CIT/CITRIC AC 30 ML ORAL UDC PO ONE (04:16)
--- OUTSIDE RECORDS SUMMARY | 2020-01-29 04:22 | XMS REPORT | Continuity of Care Document ---
:1995 Author Organization [facility] t Address [address] [place] [address] [address] [place] [address] Care Team Providers Name Role Phone Bredna EDOUARD Attending Clinician Problems This patient has no known problems. Allergies, Adverse Reactions, Alerts This patient has no known allergies or adverse reactions. Medications This patient has no known medications. Procedures This patient has no known procedures. Encounters Start End Encounter Admission Attending Care Care Encounter Source Date/Time Date/Time Type Type Clinicians Facility Department ID 2020-01-16 2020-01-16 Letter YAIR Gutierrez [id number] 00:00:00 00:00:00 (Out) [facility] [id number] [place] [id number] Claudia [id number] [address] Results This patient has no known results.
--- OUTSIDE RECORDS SUMMARY | 2020-01-29 04:22 | XMS REPORT | Summary of Care ---
:1995 Author Organization [facility] Address [address] [place] [id number] Care Team Providers Name Role Phone Pcp, Patient Does Not Have A Primary Care Provider +[id number] 0-0000 Encounter Details Date Type Department Care Team Description 01/16/2020 Letter (Out) [facility] Family Marko Gutierrez PA-C [address] [place] [phone] Allergies No Known Allergiesdocumented as of this encounter (statuses as of 01/16/2020) Medications Medication Sig Dispensed Refills Start Date End Date Status Prenat Vit Take by mouth. 0 Act avelino Comb.66-[id number]-ZQ-DHA 65-1-250 mg combo pack documented as of this encounter (statuses as of 01/16/2020) Active Problems Comments Yes No known active problemsdocumented as of this encounter (statuses as of 01/16/2020) Social History Tobacco Use Types Packs/Day Years Used Date Former Smoker Smokeless Tobacco: Never Used Comments Yes Sex Assigned at Date Recorded Not on file Job Start Date Occupation Industry Not on file Not on file Not on file Travel History Travel Start Travel End No recent travel history available. COVID-19 Exposure Response Date Recorded In the last month, have you been in contact with No / Unsure 01/10/2020 8:29 AM CDT someone who was confirmed or suspected to have Coronavirus / COVID-19? documented as of this encounter Last Filed Vital Signs Not on filedocumented in this encounter Plan of Treatment Health Maintenance Due Date Last Done Comments VARICELLA VACCINES (1 of 2 - 2-dose 02/08/1997 childhood series) MENINGOCOCCAL B VACCINES (1 of 2 - 02/08/2006 Risk Bexsero 2-dose series) DTaP,Tdap,and Td Vaccines (1 - 02/08/2007 Tdap) HPV VACCINES (1 - Female 2-dose 02/08/2007 series) Depression Screening 2008 CHLAMYDIA SCREENING 2012 PAP SMEAR 02/08/2017 INFLUENZA VACCINE (#1) 2020 PNEUMOCOCCAL 0-64 YEARS COMBINED Aged Out No longer eligible based on SERIES patient's age to complete this topic documented as of this encounter Results Not on filedocumented in this encounter Insurance Payer Benefit Plan / Subscriber ID Effective Phone Address [facility][1] xxxxxxxxx 2019-Prese [address] Medic aid HEALTH CHOICE HEALTH CHOICE nt [id number] - MANAGED MEDICAID [place] [id number] [facility] [id number] 2019-Pres [phone] [address] PPO/POS - OUT OF STATE ent [id number] [place] [address] documented as of this encounter
[2020-01-29 04:45] VITALS: BMI 33.2
[2020-01-29] MEDS ORDERED: METOCLOPRAMIDE 10 MG/2mL INJ IV SCH (05:00)
[2020-01-29] MEDS ORDERED: FAMOTIDINE 20 MG/2 ML VIAL IV ONE (05:00)
[2020-01-29] MEDS ORDERED: Ringers Lactate 1,000 ML IV SCH (05:00)
[2020-01-29] MEDS ORDERED: CEFAZOLIN/SWI 2gm 2 GM/20 ML SYR ONE (06:51)
[2020-01-29] MEDS ORDERED: MORPHINE SULFATE/PF 1 MG/ML (10 ML AMP) ONE (07:04)
[2020-01-29] MEDS ORDERED: EPHEDRINE SULF 50 MG/ML VIAL ONE (07:04)
[2020-01-29] MEDS ORDERED: BUPIVACAINE 0.75% (PF) 2 ML SP ONE (07:05)
[2020-01-29] MEDS ORDERED: FENTANYL CITR 250 MCG/5 ML IV ONE (07:05)
[2020-01-29] MEDS ORDERED: NS 0.9% VIAL 20 ML ONE (07:05)
[2020-01-29] MEDS ORDERED: Phenylephrine HCl 10 MG/ML 1 ML VIAL ONE (07:05)
[2020-01-29] MEDS ORDERED: OXYTOCIN 10 UNIT/ML ML IV ONE ×2 (07:05→07:06)
[2020-01-29] MEDS ORDERED: FENTANYL CITR 250 MCG/5 ML ONE (07:05)
[2020-01-29] MEDS ORDERED: LIDOCAINE 1% MPF 5 ML VIAL ONE (07:05)
[2020-01-29] MEDS ORDERED: ONDANSETRON 4 MG/2 ML VIAL ONE (07:05)
[2020-01-29] MEDS ORDERED: METHYLERGONOVINE 0.2MG/ML AMP IM ONE (07:11)
[2020-01-29] MEDS ORDERED: CARBOPROST TROME 250 MCG/ML IM ONE (07:11)
[2020-01-29] MEDS ORDERED: LIDOCAINE 2% MPF 5 ML VIAL ONE (07:48)
[2020-01-29] MEDS ORDERED: BISACODYL 10 MG RECTAL SUPP RC PRN (08:33)
[2020-01-29] MEDS ORDERED: ONDANSETRON 4 MG (ODT) TAB PO PRN (08:33)
[2020-01-29] MEDS ORDERED: Oxycodone HCl/Acetaminophen 1 TAB TAB PO PRN (08:33)
[2020-01-29] MEDS ORDERED: IBUPROFEN 600 MG TAB PO PRN (08:33)
[2020-01-29] MEDS ORDERED: ONDANSETRON 4 MG/2 ML VIAL IV PRN (08:33)
[2020-01-29] MEDS ORDERED: DIPHENHYDRAMINE 25 MG TAB/CAP PO PRN (08:33)
[2020-01-29] MEDS ORDERED: CEFAZOLIN/SWI 1gm 1 GM/10 ML SYR IV SCH (08:33)
[2020-01-29] MEDS ORDERED: ACETAMINOPHEN 500 MG TAB PO PRN ×2 (08:33)
[2020-01-29] MEDS ORDERED: OXYTOCIN/LR 20 UNIT/1,000 ML BAG IV SCH (09:00)
[2020-01-29] MEDS ORDERED: D5LR 1,000 ML with OXYTOCIN 20 UNIT IV SCH ×2 (09:00)
--- NOTE | 2020-01-29 09:06 | PREOPHP ---
Date of Admission: 01/29/2020 History: 2, para 1, previous section, for repeat section. Rh positive. I mmune to Rubella. Negative beta strep screen. Family History: Noncontributory. Allergies: SHE HAS NO ALLERGIES. FULL PREOPERATIVE COUNSELING, CONCERNING PROCEDURE AND POSSIBLE COMPLICATIONS, INCLUDING INFECTION, B LOOD LOSS, ANESTHETIC COMPLICATIONS, INJURY TO BLADDER, BOWEL, URETER, POSTOPERATIVE COMPLICATIONS, C LOTS IN LEGS, PNEUMONIA. THE PATIENT KNOWS FULLY WELL THIS DOES NOT CONSTITUTE ALL THE POSSIBLE PROB LEMS THAT COULD OCCUR DURING OR FOLLOWING SURGERY. Physical Examination: Heart and Lungs: Clear. Breasts: Without masses on previous visits. Abdomen: Term size. Baby is vertex. Extremities: Clear without edema, cyanosis, or clubbing. Plan: We will proceed with repeat section. SIMONA/JANNA Voice ID: [id number]
--- NOTE | 2020-01-29 09:51 | OP ---
Surgeon: Shaji Gerardo MD Rail Signal Worker: Lele Mccarthy MD. Anesthesiologist: Dr. Staley. 24-year-old, 2, para 1, 39 weeks, for repeat section. Infection; blood loss; anesth etic complications; injury to bladder, bowel, ureter; postoperative complications; clots in legs; and pneumonia discussed. Patient knows fully well this does not constitute all the possible problems th at could occur during or following surgery. Spinal block anesthesia. Description Of Procedure: After prepping and draping and timeout, Pfannenstiel incision was created over the previous incision site. The incision was carried to the fascia. The fascia was incised and incision carried transversely bilaterally. Anterior fascial plane was developed with both blunt and sharp dissection. The underlying rectus muscle was . Peritoneal defect created and retrac tion applied. Low transverse bladder flap was developed and then low transverse uterine incision. A 6-1/2 pounds estimated female weight was delivered without difficulties. Apgars [address] blood specimen was obtained. Placenta was removed manually. Uterus cleared of clot and blood and exteriorized. Cervical os dilated with ring clamp. Uterus closed with a running locked stitch of 1 chromic. Estimated blood loss during the procedure 750 cc or less. Gutters cleared of clot and blo od. Uterus was replaced in the peritoneal cavity. Inspection of suture line showed no further bleed ing. The muscles were reapproximated using two interrupted sutures of 0 Vicryl. The fascia was clos ed with 0 PDS running from either angles to the midline. Subcutaneous tissues were closed with 2-0 p otis and ender were then placed. The patient had been given 2 g of Ancef. Tolerated all procedure s well. Transferred back to her room in good condition. Final Diagnoses: Term intrauterine . Repeat section. Spinal block anesthesia. ANNIKAC/MODL Voice ID: [id number] Report ID: [id number]
--- NOTE | 2020-01-29 11:15 | PREOPHP ---
Date of Admission: 01/29/2020 History: This is a 24-year-old 2, para 1, for repeat section. Infection; blood los s; anesthetic complications; injury to bladder, bowel, ureter; postoperative complications; clots in legs; and pneumonia discussed. Patient knows fully well this does not constitute all the possible pr oblems that could occur during or following surgery. Allergies: HAS NO ALLERGIES. Medications: vitamins prior to admission. Family History: No significant family history. Social History: Does not smoke. Physical Examination: HEENT: Clear. Pupils equal, round, and reactive to light and accommodation. Conjunctivae well perf used. No oral, lingual, or buccal lesions. Chest and Lungs: Clear. Heart: Without murmurs, thrills, heaves, or rubs. Breasts: Not examined on this visit, without masses in the past. Abdomen: Term size. Baby is vertex, still -1 station. Cervix is fingertip. Extremities: Clear without edema, cyanosis, or clubbing. Patient prepared for repeat section on Monday morning. Full discussion again today. SIMONA/JANNA Voice ID: [id number]
[2020-01-29] MEDS: KETOROLAC 30 MG/ML INJ IV PRN (16:21)
[2020-01-29] MEDS ORDERED: CEFAZOLIN/SWI 1gm 1 GM/10 ML SYR IV PRN (17:00)
[2020-01-29] MEDS: Oxycodone HCl/Acetaminophen 1 TAB TAB PO PRN (23:29)
[2020-01-30] MEDS: KETOROLAC 30 MG/ML INJ IV PRN (03:50)
[2020-01-30] MEDS: Oxycodone HCl/Acetaminophen 1 TAB TAB PO PRN ×3 (07:10→23:44)
[2020-01-30] MEDS ORDERED: MAGNESIUM HYDROXIDE 8% 30 ML PO PRN (08:33)
--- NOTE | 2020-01-30 09:13 | PN ---
Postoperatively, the patient has done quite well. Pulses had been in the 60 to 70 range. Lochia is normal. The patient came in with a hematocrit of 40, which I think is elevated since it was never th at high during the . I think it was elevated secondary to dehydration prior to her CBC bein g taken. Hematocrit now stabilized around 31 to 32, and she is completely without any symptoms of hy povolemia. We will ambulate her and, if she does well, stop her IV and put her on a regular diet. S he had some pruritus postoperatively, but no other problems. Full discharge instructions given. We will go over it again tomorrow. Doing well at this point. SIMONA/PAMELLAL Voice ID: [id number] Report ID: [id number]
[2020-01-31] MEDS: Oxycodone HCl/Acetaminophen 1 TAB TAB PO PRN ×2 (04:27→08:20)
[2020-01-31 08:21] VITALS: BP 111/57; TEMP 97.9
== END 2020-01-31 08:30 | disposition home or self-care (01) | DRG 788 ==
LOC: UNDOADMIN 15:43 → ERHOLD 15:43 → 2ND-WC 01-29 04:19 → EDSTATUS 01-29 07:30
PROVIDERS: ADMIT Specialist; ATTEND Specialist
PROC: 10907ZC Drainage of Amniotic Fluid, Therapeutic from Products of Conception, Via Natural or Artificial Opening (ICD-10-PCS; 2020-01-29)
PROC: 10D00Z1 Extraction of Products of Conception, Low, Open Approach (ICD-10-PCS; principal; 2020-01-29 07:30)
DX: O34.211 Maternal care for low transverse scar from previous cesarean delivery (principal); Z3A.39 39 weeks gestation of pregnancy; Z37.0 Single live birth; Z11.59 Encounter for screening for other viral diseases
CPT/HCPCS: 36415; 81001; 85014; 85025; 85610; 85730; 86850; 86900; 86901; 88307; J0690; J2210; J2370; J2405; J2590; J2765; J3010; J7120; J7121

== ENCOUNTER 2020-04-05 08:31 | Emergency (ER) | payer BC, OTHER ==
[2020-04-05] MEDS ORDERED: MORPHINE 4 MG/ML SYR ONE (09:09)
[2020-04-05] MEDS ORDERED: ONDANSETRON 4 MG/2 ML VIAL ONE (09:09)
[2020-04-05] MEDS ORDERED: NA CHLORIDE 0.9% 1,000 ML ONE (09:33)
[2020-04-05 09:47] LABS: Absolute Lymphocytes (CBC) 1.7 K/uL (0.7-4.9); Basophils % 0.5 % (0-1.3); Hematocrit 35.6 % (36.0-45.0); Lymphocytes % 17.5 % (15.3-44.8); MPV 9.3 fL (7.6-11.3); RBC Red Blood Cell Count 4.36 M/uL (3.86-4.86)
[2020-04-05 09:57] LABS: Albumin 3.1 g/dL (3.4-5.0); Bilirubin Direct 0.1 mg/dL (0-0.2); Bilirubin Total 0.5 mg/dL (0.2-1.0); Potassium 3.5 mmol/L (3.5-5.1); Protein, Total 6.8 g/dL (6.4-8.2)
--- NOTE | 2020-04-05 10:02 | RAD REPORT ---
EXAM DESCRIPTION: CT - Stone Protocol - 04/05/2020 9:43 am CLINICAL HISTORY: left flank pain, dysuria COMPARISON: No comparisons TECHNIQUE: Axial 5 mm thick images were obtained without oral or IV contrast. The [id number] span s the entirety of the system including uppermost abdomen and lung bases. All CT scans are performed using dose optimization technique as appropriate and may include automated exposure control or mA/KV adjustment according to patient size. FINDINGS: No hydronephrosis is present and no obstructing ureteral calculi. No suspicious renal mass es. Isodense masses and pyelonephritis are not excluded on a stone protocol CT scan. No significant a drenal finding. No bladder calculi seen. Bladder is too contracted to allow all assessment of possibl e cystitis. Uterus and ovaries show no suspicious findings. Imaged portions of the liver, spleen and pancreas show no suspicious findings on non-contrast imaging . No gallbladder or biliary tree abnormality identified. No suspicious bowel findings. Appendix is normal. No hernia, mass or bulky lymphadenopathy noted. No free air, free fluid or inflammatory stranding. St randing in the low abdominal wall is probably from prior . No significant bony abnormality. IMPRESSION: Negative CT stone protocol study. Isodense masses and pyelonephritis are not excluded on stone protocol technique.Cystitis cannot be ac curately evaluated on this study.
--- NOTE | 2020-04-05 10:45 | ER ---
Nurse's Notes [facility] Name: Joya Cortez Age: 25 yrs Sex: Female : 1995 Arrival Date: 04/05/2020 Time: 08:33 Bed 20 Private MD: Diagnosis: Urinary tract infection, site not specified Presentation: 04/05 08:35 Chief complaint: Patient states: Reports pressure when urinating and only going a rb1 little bit at a time, symptoms started this morning. 08:35 Coronavirus screen: At this time, the client does not indicate any symptoms associated rb1 with coronavirus-19. Ebola Screen: Patient denies travel to an Ebola-affected area in the 21 days before illness onset. Initial Sepsis Screen: Does the patient meet any 2 criteria? No. Patient's initial sepsis screen is negative. Does the patient have a suspected source of infection? Yes: Dysuria/Frequency/Urgency/UTI. Risk Assessment: Do you want to hurt yourself or someone else? Patient reports no desire to harm self or others. Onset of symptoms was April 05, 2020. 08:35 Method Of Arrival: Ambulatory rb1 08:35 Acuity: MICHELLE 3 rb1 Triage Assessment: 08:35 General: Appears in no apparent distress. Behavior is calm, cooperative, Denies fever. rb1 Pain: Complains of pain in left low back Pain radiates to left upper quadrant and left lower quadrant Pain currently is 6 out of 10 on a pain scale. Pain began this morning. Neuro: Level of Consciousness is awake, alert, obeys commands, Oriented to person, place, time, situation. Cardiovascular: Capillary refill Patient's skin is warm and dry. Respiratory: Airway is patent Respiratory effort is even, unlabored, Respiratory pattern is regular, symmetrical. GI: Reports nausea. : Reports pressure when urinating. Feeling the need to go but only urinates small amounts. 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 - Social history:: Smoking status: Patient reports the use of cigarette tobacco products, denies chronic smoking, but will smoke occasionally. Screenin:35 Abuse screen: Denies threats or abuse. Nutritional screening: No deficits noted. rb1 Tuberculosis screening: No symptoms or risk factors identified. Fall Risk None identified. Assessment: 08:35 General: See triage assessment. rb1 09:30 Reassessment: Patient appears in no apparent distress at this time. No changes from rb1 previously documented assessment. 10:12 Reassessment: Patient appears in no apparent distress at this time. Patient and/or rb1 family updated on plan of care and expected duration. Pain level reassessed. Patient is alert, oriented x 3, equal unlabored respirations, skin warm/dry/pink. Pain 3/10. 11:10 Reassessment: Patient appears in no apparent distress at this time. No changes from rb1 previously documented assessment. Vital Signs: 08:35 BP 126 / 74; Pulse 82; Resp 17; Temp 98.1; Pulse Ox 100% ; Weight 88.45 kg; Height 5 rb1 ft. 7 in. (170.18 cm); Pain 6/10; 09:30 BP 97 / 84; Pulse 69; Resp 16; Pulse Ox 100% ; rb1 10:12 BP 114 / 67; Pulse 60; Resp 16; Pulse Ox 99% ; Pain 3/10; rb1 11:10 BP 112 / 68; Pulse 59; Resp 17; Pulse Ox 99% ; rb1 08:35 Body Mass Index 30.54 (88.45 kg, 170.18 cm) rb1 ED Course: 08:33 Patient arrived in ED. as 08:34 Izzy Alan, RN is Primary Nurse. rb1 08:35 Gregory Mendieta PA is PHCP. jmm 08:35 Tj Isbell MD is Attending Physician. jmm 08:35 Arm band placed on right wrist. rb1 08:35 Patient has correct armband on for positive identification. Placed in gown. Bed in low rb1 position. Call light in reach. Side rails up X 1. Pulse ox on. NIBP on. Warm blanket given. 08:44 Triage completed. rb1 09:12 Radiology exam delayed due to test not completed at this time. bq 09:43 CT Stone Protocol In Process Unspecified. EDMS 10:51 Initial lab(s) drawn, by me, sent to lab. Inserted saline lock: 22 gauge in left mh5 antecubital area, using aseptic technique. Blood collected. 11:18 No provider procedures requiring assistance completed. IV discontinued, intact, rb1 bleeding controlled, No redness/swelling at site. Pressure dressing applied. Administered Medications: 09:28 Drug: NS 0.9% 1000 ml Route: IV; Rate: 1 bolus; Site: left antecubital; rb1 10:43 Follow up: IV Status: Completed infusion rb1 09:29 Drug: Zofran (Ondansetron) 4 mg Route: IVP; Site: left antecubital; rb1 09:45 Follow up: Response: No adverse reaction rb1 09:29 Drug: morphine 4 mg Route: IVP; Site: left antecubital; rb1 09:43 Follow up: Response: No adverse reaction; Pain is decreased rb1 Outcome: 10:44 Discharge ordered by . kain 11:18 Discharged to home ambulatory. rb1 11:18 Condition: stable 11:18 Discharge instructions given to patient, Instructed on discharge instructions, follow up and referral plans. medication usage, Demonstrated understanding of instructions, follow-up care, medications, Prescriptions given X 1. 11:19 Patient left the ED. rb1 Signatures: Dispatcher [employer] EDMS Gregory Mendieta PA PA jmm Quilty, Betty bq Martinez, Amelia as Barber, Rebecca, RN RN rb1 Niki Maldonado [facility]
--- NOTE | 2020-04-05 10:45 | EDPHYS ---
Physician Documentation [facility] Name: Joya Cortez Age: 25 yrs Sex: Female : 1995 Arrival Date: 04/05/2020 Time: 08:33 Bed 20 Private MD: ED Physician Tj Isbell HPI: 04/05 08:41 This 25 yrs old Female presents to ER via Ambulatory with complaints of jmm Nausea, Low Back Pain, Urinary Problem. 08:41 The patient presents to the emergency department with nausea, abdominal pain, of the jmm anterior aspect of left lateral abdomen. Onset: The symptoms/episode began/occurred this morning. Possible causes: unknown. The symptoms are aggravated by nothing. The symptoms are alleviated by nothing. Associated signs and symptoms: Pertinent positives: abdominal pain, dysuria, nausea. The patient has not experienced similar symptoms in the past. 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 - Social history:: Smoking status: Patient reports the use of cigarette tobacco products, denies chronic smoking, but will smoke occasionally. ROS: 08:41 Constitutional: Negative for fever, chills, and weight loss, Cardiovascular: Negative jmm for chest pain, palpitations, and edema, Respiratory: Negative for shortness of breath, cough, wheezing, and pleuritic chest pain. 08:41 Abdomen/GI: Positive for abdominal pain, nausea. 08:41 Back: Positive for flank pain. 08:41 : Positive for urinary symptoms. 08:41 All other systems are negative. Exam: 08:41 Constitutional: This is a well developed, well nourished patient who is awake, alert, jmm and in no acute distress. Head/Face: atraumatic. Eyes: EOMI, no conjunctival erythema appreciated ENT: Moist Mucus Membranes Neck: Trachea midline, Supple Chest/axilla: Normal chest wall appearance and motion. Cardiovascular: Regular rate and rhythm. No edema appreciated Respiratory: Normal respirations, no respiratory distress appreciated 08:41 Skin: General appearance color normal MS/ Extremity: Moves all extremities, no obvious deformities appreciated, no edema noted to the lower extremities Neuro: Awake and alert, normal gait Psych: Behavior is normal, Mood is normal, Patient is cooperative and pleasant 08:41 Abdomen/GI: Inspection: abdomen appears normal, Bowel sounds: normal, Palpation: soft, mild abdominal tenderness, in the left lower quadrant. 08:41 Back: CVA tenderness, that is mild, is noted on the left. Vital Signs: 08:35 BP 126 / 74; Pulse 82; Resp 17; Temp 98.1; Pulse Ox 100% ; Weight 88.45 kg; Height 5 rb1 ft. 7 in. (170.18 cm); Pain 6/10; 09:30 BP 97 / 84; Pulse 69; Resp 16; Pulse Ox 100% ; rb1 10:12 BP 114 / 67; Pulse 60; Resp 16; Pulse Ox 99% ; Pain 3/10; rb1 11:10 BP 112 / 68; Pulse 59; Resp 17; Pulse Ox 99% ; rb1 08:35 Body Mass Index 30.54 (88.45 kg, 170.18 cm) rb1 MDM: 08:41 Patient medically screened. katherin 10:42 Data reviewed: vital signs, nurses notes. Counseling: I had a detailed discussion with kain the patient and/or guardian regarding: the historical points, exam findings, and any diagnostic results supporting the discharge/admit diagnosis, lab results, radiology results, the need for outpatient follow up, to return to the emergency department if symptoms worsen or persist or if there are any questions or concerns that arise at home. ED course: Patient is alert and non toxic in appearance in the ED. Patient is advised to follow up with pcp and otherwise given strict return precautions. Patient understood and agrees with the plan of care. . 04/05 08:51 Order name: Basic Metabolic Panel; Complete Time: 10: [facility] 04/05 08:51 Order name: CBC with Diff; Complete Time: 09: [facility] 04/05 08:51 Order name: Hepatic Function; Complete Time: 10: [facility] 04/05 08:51 Order name: Lipase; Complete Time: 10: [facility] 04/05 08:52 Order name: CT Stone Protocol; Complete Time: 10:03 [facility] 04/05 08:51 Order name: IV Saline Lock; Complete Time: 09:29 [facility] 04/05 08:51 Order name: Labs collected and sent; Complete Time: [facility] 04/05 08:51 Order name: Urine Dipstick-Ancillary (obtain specimen); Complete Time: [facility] 04/05 08:51 Order name: Urine Test (obtain specimen); Complete Time: : [facility] Administered Medications: : Drug: NS 0.9% 1000 ml Route: IV; Rate: 1 bolus; Site: left antecubital; rb1 10:43 Follow up: IV Status: Completed infusion rb1 : Drug: Zofran (Ondansetron) 4 mg Route: IVP; Site: left antecubital; rb1 09:45 Follow up: Response: No adverse reaction rb1 : Drug: morphine 4 mg Route: IVP; Site: left antecubital; rb1 09:43 Follow up: Response: No adverse reaction; Pain is decreased rb1 Disposition: 04/06 06:04 Co-signature as Attending Physician, Tj Isbell MD I agree with the assessment and katherin plan of care. Disposition: 04/05/20 10:44 Discharged to Home. Impression: Urinary tract infection, site not specified. - Condition is Stable. - Discharge Instructions: Urinary Tract Infection, Adult. - Prescriptions for Cephalexin 500 mg Oral Capsule - take 1 capsule by ORAL route every 12 hours for 10 days; 20 capsule. - Medication Reconciliation Form, Thank You Letter, Antibiotic Education, Prescription Opioid Use form. - Follow up: Private Physician; When: 2 - 3 days; Reason: Recheck today's complaints, Continuance of care, Re-evaluation by your physician. Signatures: Dispatcher [employer] Tj Tobar MD MD cha Mickail, Joel, PA PA jmm Barber, Rebecca, RN RN rb1 Corrections: (The following items were deleted from the chart) 04/05 11:19 10:44 04/05/2020 10:44 Discharged to Home. Impression: Urinary tract infection, site rb1 not specified. Condition is Stable. Forms are Medication Reconciliation Form, Thank You Letter, Antibiotic Education, Prescription Opioid Use. Follow up: Private Physician; When: 2 - 3 days; Reason: Recheck today's complaints, Continuance of care, Re-evaluation by your physician. liza
[2020-04-05 11:42] VITALS: TEMP 98.1
[2020-04-05 11:44] VITALS: O2SAT 99
[2020-04-05 11:45] VITALS: BP 112/68
== END 2020-04-05 11:19 | disposition home or self-care (01) ==
LOC: ER 08:31
DX: N39.0 Urinary tract infection, site not specified (principal); F17.210 Nicotine dependence, cigarettes, uncomplicated; Z91.018 Allergy to other foods
CPT/HCPCS: 96361; 85025; 80048; 36415; 80076; 83690; 76377; 74176; 96375; 96374; 99284; J7030; J2405

== ENCOUNTER 2020-11-26 12:13 | Emergency (ER) | payer BC, OTHER ==
[2020-11-26 14:23] LABS: Absolute Lymphocytes (CBC) 1.5 K/uL (0.7-4.9); Basophils % 0.6 % (0-1.3); Hematocrit 39.2 % (36.0-45.0); Lymphocytes % 22.4 % (15.3-44.8); MPV 9.5 fL (7.6-11.3); RBC Red Blood Cell Count 4.68 M/uL (3.86-4.86)
--- NOTE | 2020-11-26 14:33 | RAD REPORT ---
EXAM DESCRIPTION: RAD - Chest Single View - 11/26/2020 2:25 pm CLINICAL HISTORY: CHEST PAIN Chest pain. COMPARISON: <Comparisons> FINDINGS: Portable technique limits examination quality. The lungs are grossly clear. The heart is normal in size. No displaced fractures. IMPRESSION: No acute intrathoracic process suspected.
[2020-11-26 14:34] LABS: Protime INR 1.03
[2020-11-26 14:37] LABS: Urine Blood Negative (Negative); Urine Glucose Negative (Negative); Urine Protein Negative (Negative); Urine Specific Gravity >=1.030 (1.005-1.030)
[2020-11-26 14:42] LABS: ALT/SGPT 27 U/L (12-78); AST/SGOT 20 U/L (15-37); Albumin 3.7 g/dL (3.4-5.0); Alkaline Phosphatase 75 U/L (45-117); BUN Blood Urea Nitrogen 9 mg/dL (7-18); Bicarbonate 26 mmol/L (21-32); Bilirubin Direct 0.2 mg/dL (0-0.2); Bilirubin Total 0.7 mg/dL (0.2-1.0); Glucose Level 90 mg/dL (74-106); Lipase 68 U/L (73-393); Magnesium 2.3 mg/dL (1.8-2.4); NT PRO-BNP 76 pg/mL (<125); Potassium 3.9 mmol/L (3.5-5.1); Protein, Total 7.3 g/dL (6.4-8.2); Sodium Level 139 mmol/L (136-145); Troponin (Emerg Dept Use Only) < 0.02 ng/mL (0.0-0.045)
[2020-11-26 14:57] LABS: Urine Specific Gravity/Preg >1.030 (1.005-1.030)
--- NOTE | 2020-11-26 15:43 | RAD REPORT ---
EXAM DESCRIPTION: US - Abdomen Exam Limited - 11/26/2020 3:36 pm CLINICAL HISTORY: back pain Abdominal pain COMPARISON: Abdomen Exam Limited dated 04/25/2016 FINDINGS: The gallbladder is markedly contracted. The common bile duct is normal measuring 4 mm. The liver demonstrates no findings of intrahepatic biliary dilatation. IMPRESSION: Contracted gallbladder significantly limits the study. A repeat study could be performed after appropriate fasting if clinically needed.
--- NOTE | 2020-11-26 15:47 | RAD REPORT ---
EXAM DESCRIPTION: CT - Chest For Pe Angio - 11/26/2020 3:40 pm CLINICAL HISTORY: Chest pain. CHEST PAIN COMPARISON: No comparisons TECHNIQUE: CT angiogram of the pulmonary arteries was performed with MIP. All CT scans are performed using dose optimization technique as appropriate and may include automated exposure control or mA/KV adjustment according to patient size. FINDINGS: No evidence of pulmonary thromboembolism. No acute aortic finding demonstrated. The lungs are clear. No significant pericardial or pleural fluid. No concerning bony finding. IMPRESSION: No evidence of pulmonary thromboembolism. No acute lung findings.
--- NOTE | 2020-11-26 18:09 | EDPHYS ---
Physician Documentation [facility] Name: Joya Cortez Age: 25 yrs Sex: Female : 1995 Arrival Date: 11/26/2020 Time: 12:14 Bed 14 Private MD: ED Physician Tj Isbell HPI: 11/26 14:05 This 25 yrs old Female presents to ER via Ambulatory with complaints of Chest cp Pain. 14:05 The patient or guardian reports chest pain that is located primarily in the anterior cp chest wall, left. The pain radiates to left back. 14:05 Associated signs and symptoms: Pertinent positives: lower sternal and epigastric pain, cp Pertinent negatives: cough, lower extremity pain, lower extremity swelling, palpitations, shortness of breath, syncope, vomiting. The chest pain is described as like something "rolling" on inside. Duration: The patient or guardian reports multiple episodes, that are intermittent, with no pattern. Modifying factors: the symptoms are aggravated by nothing. Severity of pain: in the emergency department the pain has improved moderately, pain was worse last night while lying in bed. 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 - Social history:: Smoking status: Patient reports the use of cigarette tobacco products, denies chronic smoking, but will smoke occasionally. ROS: 14:10 Cardiovascular: Positive for chest pain, of the left side lower chest, Negative for cp edema, palpitations. 14:10 Eyes: Negative for injury, pain, redness, and discharge. cp 14:10 Constitutional: Negative for body aches, chills, fever, poor PO intake. 14:10 ENT: Negative for ear pain, sore throat, difficulty swallowing, difficulty handling secretions. 14:10 Respiratory: Negative for cough, shortness of breath, wheezing. 14:10 Abdomen/GI: Negative for abdominal pain, nausea, vomiting, and diarrhea, constipation, anorexia. 14:10 Back: Positive for radiated pain, of the left scapular area and left subscapular area. 14:10 Skin: Negative for rash. 14:10 Neuro: Negative for altered mental status, headache. 14:10 All other systems are negative. Exam: 14:06 ECG was reviewed by the Attending Physician. cp 14:13 Constitutional: The patient appears in no acute distress, alert, awake, cp non-diaphoretic, non-toxic, well developed, well nourished. 14:13 Head/Face: Normocephalic, atraumatic. cp 14:13 Eyes: Periorbital structures: appear normal, Conjunctiva: normal, no exudate, no injection, Sclera: no appreciated abnormality, Lids and lashes: appear normal, bilaterally. 14:13 ENT: External ear(s): are unremarkable, Nose: is normal, Mouth: Lips: moist, Oral mucosa: moist, Posterior pharynx: Airway: no evidence of obstruction, patent. 14:13 Neck: ROM/movement: is normal, is supple, without pain, no range of motions limitations. 14:13 Chest/axilla: Inspection: normal, Palpation: is normal, no crepitus, no tenderness. 14:13 Cardiovascular: Rate: normal, Rhythm: regular, Edema: is not appreciated, JVD: is not appreciated. 14:13 Respiratory: the patient does not display signs of respiratory distress, Respirations: normal, no use of accessory muscles, no retractions, labored breathing, is not present, Breath sounds: are clear throughout, no decreased breath sounds, no stridor, no wheezing. 14:13 Abdomen/GI: Inspection: abdomen appears normal, Bowel sounds: active, all quadrants, Palpation: soft, in all quadrants, mild abdominal tenderness, in the epigastric area, rebound tenderness, is not appreciated, involuntary guarding, is not appreciated. 14:13 Back: CVA tenderness, is absent. 14:13 Skin: no rash present. 14:13 Neuro: Orientation: to person, place \\T\\ time. Mentation: is normal, Motor: moves all fours, strength is normal. Vital Signs: 13:01 BP 103 / 64; Pulse 67; Resp 17; Temp 97.6; Pulse Ox 100% ; Weight 88.45 kg; Height 5 jl7 ft. 7 in. (170.18 cm); Pain 3/10; 13:51 BP 109 / 70; Pulse 62; Resp 14; Pulse Ox 100% ; vg1 15:58 BP 116 / 70; Pulse 70; Resp 14; Pulse Ox 100% on R/A; vg1 16:48 BP 113 / 69; Pulse 70; Resp 16; Pulse Ox 100% on R/A; vg1 13:01 Body Mass Index 30.54 (88.45 kg, 170.18 cm) jl7 MDM: 13:39 Patient medically screened. cp 14:30 Differential diagnosis: chest wall pain, cholecystitis, Cholelithiasis costochondritis, cp esophagitis, gastritis, pancreatitis, pericarditis, pneumonia, pneumothorax, pulmonary embolus. 16:20 Data reviewed: vital signs, nurses notes, lab test result(s), EKG, radiologic studies, cp CT scan, plain films, ultrasound. 16:20 Test interpretation: by ED physician or midlevel provider: ECG, plain radiologic cp studies. Counseling: I had a detailed discussion with the patient and/or guardian regarding: the historical points, exam findings, and any diagnostic results supporting the discharge/admit diagnosis, lab results, radiology results, the need for outpatient follow up, a family practitioner, to return to the emergency department if symptoms worsen or persist or if there are any questions or concerns that arise at home. Special discussion: Based on the patient's history, exam, and Dx evaluation, there is no indication for emergent intervention or inpatient Tx. It is understood by the patient/guardian that if the Sx's persist or worsen they need to return immediately for re-evaluation. 11/26 13:47 Order name: Basic Metabolic Panel; Complete Time: 14:56 cp 11/26 16:02 Interpretation: Normal except: CL 109. cp 11/26 13:47 Order name: CBC with Diff; Complete Time: 14:56 cp 11/26 13:47 Order name: LFT's; Complete Time: 14:56 cp 11/26 16:11 Interpretation: Normal except: GLOB 3.6; A/G 1.0. cp 11/26 13:47 Order name: Magnesium; Complete Time: 14:56 cp 11/26 13:47 Order name: NT PRO-BNP; Complete Time: 14:56 cp 11/26 13:47 Order name: PT-INR; Complete Time: 14:56 cp 11/26 13:47 Order name: Troponin (emerg Dept Use Only); Complete Time: 14:56 cp 11/26 13:47 Order name: XRAY Chest (1 view); Complete Time: 14:56 cp 11/26 16:11 Interpretation: Report reviewed. cp 11/26 13:47 Order name: D-Dimer; Complete Time: 14:56 cp 11/26 13:47 Order name: Lipase; Complete Time: 14:56 cp 11/26 14:36 Order name: Urine Dipstick-Ancillary; Complete Time: 14:56 EDMS 11/26 14:41 Order name: Urine --Ancillary (enter results); Complete Time: 16:02 sv 11/26 14:58 Order name: CT Chest For PE Angio; Complete Time: 16:02 cp 11/26 16:02 Interpretation: Report reviewed. cp 11/26 14:58 Order name: US Abdomen Limited: RUQ; Complete Time: 16:02 cp 11/26 13:47 Order name: EKG; Complete Time: 13:48 cp 11/26 13:47 Order name: Cardiac monitoring; Complete Time: 13:59 cp 11/26 13:47 Order name: EKG - Nurse/Tech; Complete Time: 13:59 cp 11/26 13:47 Order name: IV Saline Lock; Complete Time: 14:11 cp 11/26 13:47 Order name: Labs collected and sent; Complete Time: 14:11 cp 11/26 13:47 Order name: O2 Per Protocol; Complete Time: 14:11 cp 11/26 13:47 Order name: O2 Sat Monitoring; Complete Time: 14:11 cp 11/26 13:47 Order name: Urine Dipstick-Ancillary (obtain specimen); Complete Time: 14:41 cp 11/26 13:47 Order name: Urine Test (obtain specimen); Complete Time: 14:41 cp EC:06 Rate is 65 beats/min. Rhythm is regular. IA interval is normal. QRS interval is normal. cp QT interval is normal. T waves are Inverted in leads III, aVR. Interpreted by me. Reviewed by me. Administered Medications: No medications were administered Disposition: 11/26/20 16:21 Discharged to Home. Impression: Other chest pain. - Condition is Stable. - Discharge Instructions: Nonspecific Chest Pain, Form - Excuse from Work, School, or Physical Activity. - Prescriptions for Naprosyn 500 mg Oral Tablet - take 1 tablet by ORAL route 2 times per day take with food; 20 tablet. - Medication Reconciliation Form, Thank You Letter, Antibiotic Education, Prescription Opioid Use, Work release form form. - Follow up: Private Physician; When: 2 - 3 days; Reason: Recheck today's complaints. - Problem is new. - Symptoms have improved. Addendum: 11/28/2020 07:40 Co-signature as Attending Physician, Tj Isbell MD I agree with the assessment and c shaw plan of care. Signatures: Dispatcher [employer] EDTj Brooks MD MD cha Page, Corey, PA PA cp Mirian Leonard, RN RN jl7 Juani Cortez, RN RN vg1 Corrections: (The following items were deleted from the chart) 11/26 16:50 16:21 11/26/2020 16:21 Discharged to Home. Impression: Other chest pain. Condition is vg1 Stable. Forms are Medication Reconciliation Form, Thank You Letter, Antibiotic Education, Prescription Opioid Use. Follow up: Private Physician; When: 2 - 3 days; Reason: Recheck today's complaints. Problem is new. Symptoms have improved. cp 11/27 03:10 11/26 14:00 Differential diagnosis: chest wall pain, cholecystitis, Cholelithiasis cp costochondritis, esophagitis, gastritis, pancreatitis, pericarditis, pneumonia, pneumothorax, pulmonary embolus, cp
--- NOTE | 2020-11-26 18:09 | ER ---
Nurse's Notes [facility] Name: Joya Cortez Age: 25 yrs Sex: Female : 1995 Arrival Date: 11/26/2020 Time: 12:14 Bed 14 Private MD: Diagnosis: Other chest pain Presentation: 11/26 13:01 Chief complaint: Patient states: Chest pain right under left breast, radiates to upper jl7 left chest and straight through to the upper middle back, reports nausea with the pain last night, reports pain right now 10, last night 05/26. Coronavirus screen: Client denies travel out of the [place] in the last 14 days. At this time, the client does not indicate any symptoms associated with coronavirus-19. Ebola Screen: No symptoms or risks identified at this time. Initial Sepsis Screen: Does the patient meet any 2 criteria? No. Patient's initial sepsis screen is negative. Does the patient have a suspected source of infection? No. Patient's initial sepsis screen is negative. Risk Assessment: Do you want to hurt yourself or someone else? Patient reports no desire to harm self or others. Onset of symptoms was November 24, 2020. Care prior to arrival: None. 13:01 Method Of Arrival: Ambulatory 7 13:01 Acuity: MICHELLE 3 jl7 Triage Assessment: 13:04 General: Appears in no apparent distress. uncomfortable, Behavior is calm, cooperative, jl7 appropriate for age. Pain: Complains of pain in left breast Pain radiates to back Pain currently is 3 out of 10 on a pain scale. Cardiovascular: Patient's skin is warm and dry. 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 - Social history:: Smoking status: Patient reports the use of cigarette tobacco products, denies chronic smoking, but will smoke occasionally. Screenin:49 Abuse screen: Denies threats or abuse. Nutritional screening: No deficits noted. vg1 Tuberculosis screening: No symptoms or risk factors identified. Fall Risk No fall in past 12 months (0 pts). No secondary diagnosis (0 pts). IV access (20 points). Ambulatory Aid- None/Bed Rest/Nurse Assist (0 pts). Gait- Normal/Bed Rest/Wheelchair (0 pts) Mental Status- Oriented to own ability (0 pts). Total Vila Fall Scale indicates No Risk (0-24 pts). Assessment: 13:47 General: Appears in no apparent distress. comfortable, Behavior is calm, cooperative. vg1 Pain: Denies pain. Complains of pain in epigastric area, xiphoid area, under left side of chest and mid back Pain currently is 0 out of 10 on a pain scale. at worst was 7 out of 10 on a pain scale. Quality of pain is described as stabbing, Pain began 2-3 days ago. Neuro: Level of Consciousness is awake, alert, obeys commands, Oriented to person, place, time, situation. Cardiovascular: Patient's skin is warm and dry. Respiratory: Airway is patent Respiratory effort is even, unlabored. GI: Reports nausea, normal bowel habits. : No signs and/or symptoms were reported regarding the genitourinary system. EENT: No signs and/or symptoms were reported regarding the EENT system. Derm: Skin is intact, is healthy with good turgor. Musculoskeletal: Circulation, motion, and sensation intact. 14:52 Reassessment: Patient appears in no apparent distress at this time. No changes from vg1 previously documented assessment. Patient is alert, oriented x 3, equal unlabored respirations, skin warm/dry/pink. Patient denies pain at this time. 14:54 Reassessment: Spoke with outside lab, Lab Alert, D-dimer 547. Provider Notified. vg1 15:58 Reassessment: Patient appears in no apparent distress at this time. No changes from vg1 previously documented assessment. Vital Signs: 13:01 BP 103 / 64; Pulse 67; Resp 17; Temp 97.6; Pulse Ox 100% ; Weight 88.45 kg; Height 5 jl7 ft. 7 in. (170.18 cm); Pain 3/10; 13:51 BP 109 / 70; Pulse 62; Resp 14; Pulse Ox 100% ; vg1 15:58 BP 116 / 70; Pulse 70; Resp 14; Pulse Ox 100% on R/A; vg1 16:48 BP 113 / 69; Pulse 70; Resp 16; Pulse Ox 100% on R/A; vg1 13:01 Body Mass Index 30.54 (88.45 kg, 170.18 cm) jl7 ED Course: 12:14 Patient arrived in ED. ds1 13:04 Triage completed. jl7 13:04 Arm band placed on right wrist. jl7 13:38 Tj Metz PA is PHCP. cp 13:38 Tj Isbell MD is Attending Physician. cp 13:42 Juani Cortez, RN is Primary Nurse. vg1 13:59 Patient has correct armband on for positive identification. Placed in gown. Bed in low mh5 position. Call light in reach. Side rails up X 1. Warm blanket given. compliance monitor on. Pulse ox on. NIBP on. 14:00 EKG done, by ED staff, reviewed by Tj Isbell MD. 5 14:12 Initial lab(s) drawn, by ga, sent to lab. Inserted saline lock: 22 gauge in left vg1 antecubital area, using aseptic technique. Blood collected. 14:25 XRAY Chest (1 view) In Process Unspecified. EDMS 15:24 US Abdomen Limited: RUQ In Process Unspecified. EDMS 15:40 CT Chest For PE Angio In Process Unspecified. EDMS 16:50 Patient maintains SpO2 saturation greater than 95% on room air. vg1 16:50 No provider procedures requiring assistance completed. IV discontinued, intact, vg1 bleeding controlled, No redness/swelling at site. Pressure dressing applied. Administered Medications: No medications were administered Outcome: 16:21 Discharge ordered by . cp 16:50 Discharged to home ambulatory. vg1 16:50 Condition: stable 16:50 Discharge instructions given to patient, Instructed on discharge instructions, follow up and referral plans. medication usage, Demonstrated understanding of instructions, follow-up care, medications, Prescriptions given X 1. 16:50 Patient left the ED. vg1 Signatures: Dispatcher [employer] [facility] Shasta Sylvester ds1 Tj Metz PA PA cp Martinez, Maria [facility] Mirian Leonard, BENJAMIN RN jl7 Juani Cortez, RN RN vg1
[2020-11-26 18:56] VITALS: O2SAT 100
[2020-11-26 19:01] VITALS: BP 113/69
[2020-11-26 19:08] VITALS: TEMP 99
== END 2020-11-26 16:50 | disposition home or self-care (01) ==
LOC: ER 12:13
DX: R07.89 Other chest pain (principal); F17.210 Nicotine dependence, cigarettes, uncomplicated; Z91.018 Allergy to other foods
CPT/HCPCS: 85025; 80048; 36415; 83735; 81025; 85610; 85379; 80076; 81003; 84484; 83690; 83880; 71275; 71045; 76705; 99285; Q9967; 93005

== ENCOUNTER 2020-11-27 03:21 | Emergency (ER) | payer OTHER ==
--- OUTSIDE RECORDS SUMMARY | 2020-11-27 03:25 | XMS REPORT | Continuity of Care Document ---
:1995 [address] [facility] t Address [address] [place] [address] [address] [place] [address] Care Team Providers Name Role Phone Brenda EDOUARD Attending Clinician Problems This patient has no known problems. Allergies, Adverse Reactions, Alerts This patient has no known allergies or adverse reactions. Medications This patient has no known medications. Procedures This patient has no known procedures. Encounters Start End Encounter Admission Attending Care Care Encounter Source Date/Time Date/Time Type Type Clinicians Facility Department ID 2020-01-16 2020-01-16 Letter YAIR Gutierrez [id number] 00:00:00 00:00:00 (Out) [facility] [id number] [place] [id number] Claudia [id number] [address] Results This patient has no known results.
--- NOTE | 2020-11-27 03:53 | EDPHYS ---
Physician Documentation [facility] Name: Joya Cortez Age: 25 yrs Sex: Female : 1995 Arrival Date: 11/27/2020 Time: 03:24 Bed 18 Private MD: ED Physician Gaston Tejada HPI: 11/27 03:47 This 25 yrs old Female presents to ER via Ambulatory with complaints of Back rn Pain. 03:47 Trauma demographics: Location of Injury: The injury occurred at an unknown. rn 03:47 The patient or guardian reports chest pain that is located primarily in the chest rn diffusely. The pain radiates to back. Associated signs and symptoms: Pertinent positives: vomiting, Pertinent negatives: abdominal pain, cough, diaphoresis, lower extremity swelling, lightheadedness, near syncope, palpitations, syncope. The chest pain is described as sharp, stabbing. Duration: The patient or guardian reports multiple episodes, that are intermittent. Modifying factors: The symptoms are alleviated by nothing. the symptoms are aggravated by deep breath. Severity of pain: At its worst the pain was moderate in the emergency department the pain has improved. The patient has experienced similar episodes in the past. The patient has been recently seen at the [facility] Emergency Department, yesterday. Reports chest and back pain, hurts to take deep breath. NO fever/cough/sob. Seen here yesterday and had neg ct chest for PE and ultrasound abdomen, neg bloodowork. Reports smokes and vapes. No trauma. . 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 - Social history:: Smoking status: Patient reports the use of cigarette tobacco products, denies chronic smoking, but will smoke occasionally, Reported history of juuling and/or vaping. - Family history:: not pertinent. - Hospitalizations: : No recent hospitalization is reported. ROS: 03:47 Constitutional: Negative for fever, chills, and weight loss, Eyes: Negative for injury, rn pain, redness, and discharge, Neck: Negative for injury, pain, and swelling, Cardiovascular: Negative for palpitations, and edema, Respiratory: Negative for shortness of breath, cough, wheezing Abdomen/GI: Negative for abdominal pain, nausea, vomiting, diarrhea, and constipation, Back: Negative for injury : Negative for injury, bleeding, discharge, and swelling, MS/Extremity: Negative for injury and deformity, Skin: Negative for injury, rash, and discoloration, Neuro: Negative for headache, weakness, numbness, tingling, and seizure. Exam: 03:47 Constitutional: This is a well developed, well nourished patient who is awake, alert, rn and in no acute distress. Head/Face: Normocephalic, atraumatic. Eyes: Pupils equal round and reactive to light, extra-ocular motions intact. Lids and lashes normal. Conjunctiva and sclera are non-icteric and not injected. Cornea within normal limits. Periorbital areas with no swelling, redness, or edema. Chest/axilla: Nontender with no deformity Cardiovascular: Regular rate and rhythm. No pulse deficits. Respiratory: No increased work of breathing, no retractions or nasal flaring. Abdomen/GI: soft, non-tender Back: No spinal tenderness. No costovertebral tenderness. Full range of motion. Skin: Warm, dry MS/ Extremity: Pulses equal, no cyanosis. Neuro: Awake and alert, GCS 15 Vital Signs: 03:40 BP 135 / 68; Pulse 79; Resp 18 S; Temp 98.8; Pulse Ox 100% on R/A; Weight 90.72 kg; ad5 Height 5 ft. 7 in. (170.18 cm); Pain 1/10; 03:40 Body Mass Index 31.32 (90.72 kg, 170.18 cm) ad5 MDM: 03:26 Patient medically screened. rn 03:47 Differential diagnosis: Cholelithiasis costochondritis, esophagitis, gastritis, rn gastroesophageal reflux disease (GERD), pleurisy. Data reviewed: vital signs, nurses notes, old medical records, lab test result(s), radiologic studies, and as a result, I will discharge patient. Counseling: I had a detailed discussion with the patient and/or guardian regarding: the historical points, exam findings, and any diagnostic results supporting the discharge/admit diagnosis, lab results, radiology results, the need for outpatient follow up, to return to the emergency department if symptoms worsen or persist or if there are any questions or concerns that arise at home. Response to treatment: the patient's symptoms have markedly improved after treatment, and as a result, I will discharge patient. Special discussion: Based on the patient's history, exam, and Dx evaluation, there is no indication for emergent intervention or inpatient Tx. It is understood by the patient/guardian that if the Sx's persist or worsen they need to return immediately for re-evaluation. I discussed with the patient/guardian in detail that at this point there is no indication for admission to the hospital. It is understood, however, that if the symptoms persist or worsen the patient needs to return immediately for re-evaluation. ED course: Medical records and imaging neg from yesterday, stable vitals, no oxygen requirement. Benign abd exam. Told her to stop smoking and vaping, and if that doesn't fix problem, needs HIDA scan. . Administered Medications: 03:49 Drug: TORadol (ketorolac) 30 mg Route: IM; Site: right ventrogluteal; ad5 Disposition: 11/27/20 03:52 Discharged to Home. Impression: Pleurisy. - Condition is Stable. - Discharge Instructions: Pleurisy. - Medication Reconciliation Form, Thank You Letter, Antibiotic Education, Prescription Opioid Use form. - Follow up: Private Physician; When: As needed; Reason: Recheck today's complaints, Re-evaluation by your physician. - Problem is new. - Symptoms have improved. Signatures: Gaston Tejada MD MD rn Davidson, Andrea ad5 Corrections: (The following items were deleted from the chart) 04:04 03:52 11/27/2020 03:52 Discharged to Home. Impression: Pleurisy. Condition is Stable. ad5 Forms are Medication Reconciliation Form, Thank You Letter, Antibiotic Education, Prescription Opioid Use. Follow up: Private Physician; When: As needed; Reason: Recheck today's complaints, Re-evaluation by your physician. Problem is new. Symptoms have improved. rn
--- NOTE | 2020-11-27 03:53 | ER ---
Nurse's Notes [facility] Name: Joya Cortez Age: 25 yrs Sex: Female : 1995 Arrival Date: 11/27/2020 Time: 03:24 Bed 18 Private MD: Diagnosis: Pleurisy Presentation: 11/27 03:40 Chief complaint: Patient states: Pt presents to ED c/o LUQ and mid back pain that ad5 radiates to upper back. Denies known injury. Reports pain worse with deep breath. Seen in ED yesterday AM and negative workup for same s/s. 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 Coronavirus screen: Client denies travel out of the [place] in the last 14 days. At this time, the client does not indicate any symptoms associated with coronavirus-19. Ebola Screen: Patient negative for fever greater than or equal to 101.5 degrees Fahrenheit, and additional compatible Ebola Virus Disease symptoms Patient denies exposure to infectious person. Patient denies travel to an Ebola-affected area in the 21 days before illness onset. No symptoms or risks identified at this time. Initial Sepsis Screen: Does the patient meet any 2 criteria? No. Patient's initial sepsis screen is negative. Does the patient have a suspected source of infection? No. Patient's initial sepsis screen is negative. Risk Assessment: Do you want to hurt yourself or someone else? Patient reports no desire to harm self or others. Onset of symptoms was November 26, 2020. 03:40 Method Of Arrival: Ambulatory ad5 03:40 Acuity: MICHELLE 3 ad5 Triage Assessment: 03:43 General: Appears uncomfortable, Behavior is cooperative, appropriate for age, anxious. ad5 Pain: Complains of pain in left subscapular area Pain radiates to left upper quadrant. 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 - Social history:: Smoking status: Patient reports the use of cigarette tobacco products, denies chronic smoking, but will smoke occasionally, Reported history of juuling and/or vaping. - Family history:: not pertinent. - Hospitalizations: : No recent hospitalization is reported. Screenin:45 Abuse screen: Denies threats or abuse. Denies injuries from another. Nutritional ad5 screening: No deficits noted. Tuberculosis screening: No symptoms or risk factors identified. Fall Risk None identified. Assessment: 03:43 General: Appears uncomfortable, Behavior is cooperative, appropriate for age, anxious. ad5 Pain: Complains of pain in left subscapular area Pain radiates to left upper quadrant Pain currently is 1 out of 10 on a pain scale. Quality of pain is described as sharp. Neuro: No deficits noted. Level of Consciousness is awake, alert, obeys commands, Oriented to person, place, time, situation, Appropriate for age. Cardiovascular: Denies chest pain, lightheadedness, palpitations, shortness of breath, Heart tones present Capillary refill < 3 seconds Clubbing of nail beds is absent JVD is absent Patient's skin is warm and dry. Pulses are all present. Respiratory: No deficits noted. Airway is patent Trachea midline Respiratory effort is even, unlabored, Respiratory pattern is regular, symmetrical. GI: Abdomen is non-distended, Bowel sounds present X 4 quads. Abd is soft and non tender. : No deficits noted. EENT: No deficits noted. Derm: No deficits noted. Musculoskeletal: Circulation, motion, and sensation intact. Capillary refill < 3 seconds, Range of motion: intact in all extremities. Vital Signs: 03:40 BP 135 / 68; Pulse 79; Resp 18 S; Temp 98.8; Pulse Ox 100% on R/A; Weight 90.72 kg; ad5 Height 5 ft. 7 in. (170.18 cm); Pain 110; 03:40 Body Mass Index 31.32 (90.72 kg, 170.18 cm) ad5 ED Course: 03:24 Patient arrived in ED. bp1 03:26 Gaston Tejada MD is Attending Physician. rn 03:26 Ba Rodas is Primary Nurse. ad5 03:42 Triage completed. ad5 03:42 Arm band placed on Patient placed in an exam room, on a stretcher, on pulse oximetry. ad5 03:45 Patient has correct armband on for positive identification. Fall risk band placed. ad5 Placed in gown. Bed in low position. Call light in reach. Side rails up X 1. Pulse ox on. NIBP on. Door closed. Noise minimized. 03:57 No provider procedures requiring assistance completed. Patient did not have IV access ad5 during this emergency room visit. Administered Medications: 03:49 Drug: TORadol (ketorolac) 30 mg Route: IM; Site: right ventrogluteal; ad5 Outcome: 03:52 Discharge ordered by . rn 03:57 Discharged to home ad5 03:57 Condition: stable 03:57 Discharge instructions given to patient, Instructed on discharge instructions, follow up and referral plans. medication usage, Demonstrated understanding of instructions, follow-up care, medications. 04:04 Patient left the ED. ad5 Signatures: Gaston Tejada MD MD rn Paniauga, Brittany bp1 Davidson, Andrea ad5
[2020-11-27] MEDS ORDERED: KETOROLAC 30 MG/ML INJ ONE (04:06)
[2020-11-27 04:19] VITALS: BP 135/68; TEMP 98.8; O2SAT 100
== END 2020-11-27 04:04 | disposition home or self-care (01) ==
LOC: ER 03:21
DX: R09.1 Pleurisy (principal); F17.210 Nicotine dependence, cigarettes, uncomplicated; F17.290 Nicotine dependence, other tobacco product, uncomplicated
CPT/HCPCS: 96372; 99283

== ENCOUNTER 2022-04-11 22:05 | Emergency (ER) | payer OTHER ==
--- OUTSIDE RECORDS SUMMARY | 2022-04-11 22:08 | XMS REPORT | Continuity of Care Document ---
:1995 Author Organization [facility] t Address [address] [place] [address] Care Team Providers Name Role Phone Pcp, Patient Does Not Have A Primary Care Physician [id number] Marcy Louise MD Attending Clinician Doctor Unassigned, [place] Attending Clinician Unavailable Yvrose Gutierrez PA-C Attending Clinician Payers Payer Name Policy Type Policy Number Effective Date Expiration Date S ource Problems Condition Condition Condition Status Onset Resolution Last Treating Co mments Source Name Details Category Date Date Treatment Clinician Date Nexplanon Nexplanon Disease Active Uni vers in place in place 9-15 ity of 00:00: [place] [address] Medical Branch History of History of Disease Active U nivers 8-07 [place] 00 [facility] [place] Obesity Obesity Disease Active Univers (BMI (BMI 6-30 ity of 30-39.9) 30-39.9) 00:00: [place] [address] Medical Branch Allergies, Adverse Reactions, Alerts Allergy Allergy Status Severity Reaction(s) Onset Inactive Treating Comm ents Source Name Type Date Date Clinician Sarmad Propensi Active Swelling Unive rs ty to 01-05 ity of adverse 00:00: [place] reaction 00 Medical s Branch Social History Social Habit Start Date Stop Date Quantity Comments Source History of Cigarette Smoker Universi ty of tobacco use [facility] Exposure to 2022-03-21 2022-03-31 Not sure [facility] SARS-CoV-2 00:00:00 08:26:00 [facility] (event) [place] Alcohol intake 2022-03-31 2022-03-31 Ex-drinker [facility] 00:00:00 00:00:00 (finding) [facility] Tobacco use and 2022-02-20 2022-02-20 Smokeless tobacco Un iversity of exposure 00:00:00 00:00:00 non-user [facility] Sex Assigned At [birth year] Universit y of 00:00:00 00:00:00 [facility] Smoking Status Start Date Stop Date Source Ex-smoker 2022-02-20 00:00:00 2022-02-20 00:00:00 Universi ty of [facility] Medications Ordered Filled Start Stop Current Ordering Indication Dosage Frequency Signature Comments Components Source Medication Medication Date Date Medication? Clinician (SIG) Name Name etonogestre 2021- No [id number] 68mg Univers L 03-31 ity of (NEXPLANON) 15:30: 14:31 [place] implant 68 00 :00 Medical mg Branch etonogestre 2021- No [id number] 68mg 68 mg, Univers L 03-31 Subdermal, ity of (NEXPLANON) 15:30: 14:31 ONCE NOW, [place] implant 68 00 :00 1 dose, On Med ical mg Casie Branch 03/31/22 at 1030, Routine
Use approved by: [employer] Prenat Vit Yes Take by [facility] ers Comb.10-Iro -06 mouth. ity of n-FA-DHA 14:02: [place] 65-1-250 mg 17 Medical combo pack Branch Prenat Vit Yes Take by [facility] ers Comb.10-Iro 9-06 mouth. ity of n-FA-DHA 14:02: [place] 65-1-250 mg 17 Medical combo pack Branch ARIPiprazol Yes [id number] 2mg Take 1 Univers e (ABILIFY) 9-06 tablet by ity of 2 mg tablet 00:00: [place] 00 the Medical morning. Branch ARIPiprazol Yes [id number] 2mg Take 1 Univers e (ABILIFY) 9-06 tablet by ity of 2 mg tablet [place] the Medical morning. Branch Vital Signs Vital Name Observation Time Observation Value Comments Source Systolic blood 2022-03-31 14:20:00 118 mm[Hg] Univer sity [facility] Diastolic blood 2022-03-31 14:20:00 69 [facility]Hg[facility] 2022-03-31 14:20:00 90 /min [facility] Body temperature 2022-03-31 14:20:00 36.83 Suad [facility] Respiratory rate 2022-03-31 14:20:00 19 /min [facility] Body height 2022-03-31 14:20:00 170.2 cm [facility] Body weight 2022-03-31 14:20:00 98.793 kg [facility] BMI 2022-03-31 14:20:00 34.11 kg/m2 [facility] Procedures Procedure Date / Time Performing Clinician Source Performed POCT TEST 2022-03-31 14:21:00 Marcy Louise [facility] CONSENT FOR 2022-03-31 05:01:00 Doctor Unassigned, No [facility] CONTRACEPTION [facility] Encounters Start End Encounter Admission Attending Care Care Encounter Source Date/Time Date/Time Type Type Clinicians Facility Department ID 2022-03-31 2022-03-31 Office Marcy Louise [facility] [id number] [facility] 09:00:00 09:35:02 Visit Fer MANZANO [id number] i [facility] [id number] Donavan ROBISON [id number] Ks dical NAL [address] Branch BUILDING 2022-03-31 2022-03-31 Orders Doctor YVROSE [id number] Univers 00:00:00 00:00:00 Only Unassigned, JOSEPH [id number] ity of [place] [facility] [id number] Prasanth as [id number] [address] 2020-01-16 2020-01-16 Rolando Gutierrez [facility] [id number] 00:00:00 00:00:00 (Out) [facility] [id number] [place] [id number] Professio [phone] nal [address] Office [address] One Results Test Description Test Time Test Comments Results Result Comments Source POCT TEST 2022-03-31 14:21:00 Test Item Value Reference Range Interpretation Comme nts POCT PREG (test code = 1605) Negative On board controls acceptable with C Line (test code = 3574) Yes POCT PREG LOT # (test code = 3575) POCT PREG TEST DATE (test code = 3576) [facility] - [id number] 12:31:02SPECIMEN NUMBER: [id number] CULTURE, STREP B - SPECIMEN NUMBER: [id number] SPECIMEN COMMENT:GBS SOURCE: VAGINA REPORT STATUS: FINAL FINAL REPORT: 01/01/2022 No Group B Streptococci isolated after two days incubation. PRELIMINARY STREP. SCREEN: 12/31/2021 No Group B Streptococci isolated afterone days incubation.DRUG ABUSE SCREEN 10 REFLEX [id number] 09:08:11 Test Item Value Reference Interpretation Comments Range COMMENTS (test code TEST NOT Unable t o perform = 3222) PERFORMED testing, specim en not received.Charge s adjusted as gely licable. Note: Validity testing suggests an alt ered, adulterated or compromised spe cimen. Analytic detect ion may be affected. Consideration s hould be given to repeat analysis on a newly acqu ired specimen or cli nical correlation and medication revi ew. AMPHETAMINES (test TEST NOT NEGATIVE code = 3201) PERFORMED BARBITURATES (test TEST NOT NEGATIVE code = 3202) PERFORMED BENZODIAZEPINES TEST NOT NEGATIVE (test code = 3203) PERFORMED CANNABINOIDS (test TEST NOT NEGATIVE code = 3204) PERFORMED COCAINE METABOLITE TEST NOT NEGATIVE (test code = 3205) PERFORMED OPIATES (test code = TEST NOT NEGATIVE 3209) PERFORMED OXYCODONE (test code TEST NOT NEGATIVE = 82968) PERFORMED PHENCYCLIDINE (test TEST NOT NEGATIVE code = 3210) PERFORMED METHADONE (test code TEST NOT NEGATIVE = 3207) PERFORMED BUPRENORPHINE (test TEST NOT NEGATIVE code = 41005) PERFORMED SOURCE (test code = TEST NOT SEE BELOW FOR 856032) PERFORMED THRESHOLDS AND IMPORTANT METHOD NOTES * ANALYTE SCREENING CUTOF F CONFIRMATORY CUTOFF ___AMPHETAMINES 500 NG/ML 100 NG/MLBARBITURAT ES 200 NG/ML 100 NG/MLBENZODIAZE PINES 200 NG/ML 100 NG/MLCANNABINOI DS (THC) 20 NG/ML 15 NG/ MLCOCAINE METABOLITES 150 NG/ML 100 NG/MLOPIATE METABOLITES 300 NG/ML 100 NG/MLOXYCOD ONE 100 NG/ML 100 NG/MLPHENCYCLID INE (PCP) 25 NG/ML 25 NG/MLMETHADONE 300 NG/ML 100 NG/MLBUPREN ORPHINE 5 NG/ML 5 NG/ML N OTE: Screening metho dology is qualitative Enz yme Immunoassay.The screening metho d may be less sensitive for certain medicationsincl uding clonazepam and lorazepam in the benzodia zepine assay andtramad ol or fentanyl in the opiate assay, amongst others. Patientcomplian ce, hydration statu s, timing and dose of med ications, drugabsorption and specimen qualit y may affect screenin g assay.For clini benton discrepancies, consider directed testin g for specificcompoun ds or contact the lab oratory within specimen stability tofor hein for confirmatory te sting. This test is sp ecified for medicalpurp oses only. It is not valid for forensic us e. UNLESS OTHERWISE INDIC ATED, ALL TESTING PERFORM ED ATCLINICAL PATH [facility]LOGY LAB[facility]ATORIES, [place]. [address] [place] [address] LABORATORY DIRE CTOR: PRUDENCE THOMAS M.D. CLIA NUMBER [id number] [place] [id number] CULTURE, [id number] 11:16:08SPECIMEN NUMBER: [id number] CULTURE, URINE SPECIMEN NUMBER: [id number] SPECIMEN COMMENT: URINE SOURCE:URINE REPORT STATUS: FINAL FINAL REPORT: 12/30/2021 >100,000 CFU/ML UROGENITAL DOMINIQUE PRESENT NO CO MMON PATHOGENSHIV 1/2 4TH GEN, RFLX [id number] 03:53:39 Test Item Value Reference Range Interpretation Comments HIV 1/2 4TH GEN, RFLX CONF (test NON-REACTIVE NON-REACTIVE code = 3514) [id number] 02:47:38 Test Item Value Reference Range Interpretation Comments RPR RESULT (test code = NON-REACTIVE NON-REACTIVE 3501) RPR TITER (test code = 3500) NOT INDIC. TITER NOT INDIC. CBC W/AUTO DIFF WITH [id number] 02:36:58 Test Item Value Reference Range Interpretation Comments WBC (test code = 9.3 K/UL 3.5-11.0 1001) RBC (test code = 4.31 M/UL 3.80-5.40 1002) HEMOGLOBIN (test code 11.5 G/DL 11.5-15.5 = 1003) HEMATOCRIT (test code 33.8 % 34.0-45.0 L = 1004) MCV (test code = 78.4 fL 80.0-99.0 L 1005) MCH (test code = 26.7 PG 25.0-33.0 1006) MCHC (test code = 34.0 G/DL 31.0-36.0 1007) RDW (test code = 12.6 % 11.5-15.0 1038) NEUTROPHILS (test 79.9 % code = 1008) LYMPHOCYTES (test 13.7 % code = 1010) MONOCYTES (test code 5.5 % = 1011) EOSINOPHILS (test 0.3 % code = 1012) BASOPHILS (test code 0.3 % = 1013) IMMATURE GRANULOCYTES 0.3 % (test code = 1036) NUCLEATED RBCS (test 0.0 /100 WBC'S See_Comment [Aut omated code = 1065) message] The sy stem which generated this result transmitted reference range : 0.0. The refere nce range was not u sed to interpret th is result as normal/abnormal . PLATELET COUNT (test 287 K/UL 130-400 code = 1015) ABSOLUTE NEUTROPHILS 7.43 K/UL 1.50-7.50 (test code = 1066) ABSOLUTE LYMPHOCYTES 1.27 K/UL 1.00-4.00 (test code = 1067) ABSOLUTE MONOCYTES 0.51 K/UL 0.20-1.00 (test code = 1068) ABSOLUTE EOSINOPHILS 0.03 K/UL 0.00-0.50 (test code = 1040) ABSOLUTE BASOPHILS 0.03 K/UL 0.00-0.20 (test code = 1069) ABS IMMATURE 0.03 K/UL 0.00-0.10 GRANULOCYTES (test code = 1020) ABS NUCLEATED RBCS 0.00 K/UL 0.00-0.11 (test code = 33794) CULTURE, [id number] 09:23:45SPECIMEN NUMBER: [id number] CULTURE, URINE SPECIMEN NUMBER: [id number] SPECIMEN COMMENT: URINE SOURCE: URINE REPORT STATUS: FINAL FINAL REPORT: 12/16/2021 50-100,000 CFU/ML UROGENITAL DOMINIQUE PRESENT NO C OMMON PATHOGENSCT/NG, NAAT, [id number] 22:39:29 Test Item Value Reference Range Interpretation Comments GONORRHEA, NAAT NEGATIVE NEGATIVE IMPORTA NT NOTICE: SEE (test code = [place] [address]) [email or web address] [employer]itionsUAWR CorporationKit Note: Assay methodology is nucleic acid amplification b y compress trucker m ediated amplification ( TMA) utilizing the A ptima Combo 2 Assay. CHLAMYDIA, NAAT NEGATIVE NEGATIVE IMPORTA NT NOTICE: SEE (test code = [place] [address]) [email or web address] [email or web address] Note: Assay methodology is nucleic acid amplification b y compress trucker m ediated amplification ( TMA) utilizing the A ptima Combo 2 Assay. UNLESS OTHERWISE INDICATED, ALL TESTING PERFORMED [facility] [address] [place] [id number] [place] [address] DIRECTOR: PRUDENCE GEORGE M.D. CLIA NUMBER [id number] CAP ACCREDITATION N O. [id number] AMPHETAMINES, QUANT, [id number] 22:04:22 Test Item Value Reference Interpretation Comments Range AMPHETAMINE INTERP Positive A (test code = 65228) AMPHETAMINE QNT >5000 ng/mL <100 H (test code = 63153) METHAMPHETAMINE Positive A INTERP (test code = 80057) METHAMPHETAMINE QNT >5000 ng/mL <100 H (test code = 75390) MDA INTERP (test Negative code = 05460) MDA QNT (test code = <50 ng/mL <100 95083) MDMA INTERP (test Negative code = 750977) MDMA QNT (test code <50 ng/mL <100 Referen ce range = 939581) indicates cutof f for positive result determination.L imit of detection and quantitation (L OD/Q) thresholds may be lowerthan posit avelino cutoff. Results detected above LOD/Q but below cutoffare inter preted as Below Cutoff. S pecimen Type: Urine Uri ne drug and metabolite concentrations are dependent on ma nyfactors, including patie nt compliance, rudi g dosing, dosing interval,indivi dual variation in dr ug absorption and metabolism, urineconcentrat ion, and limitations of testing. Assay is intend ed formedical purp oses only, not for forensi c use. This test was d eveloped and its perform ance characteristics determined by [facility] ([facility] ). It has not beencleared or approved by the U.S. Food and Drug Admini stration (FDA).The FDA h as determined that such clearance or ap proval is notnecessary. T his test is used for cli nical purposes and sh ould not beregarded as investigational or for research. [facility] i s qualified toper form high complexity test ing under the Clinical LaboratoryImpro vement Amendments (CLI A). TESTING PERFORM ED AT [facility] [address] [facility] [address], [address] [place] [address] CLIA NO: [id number] UNLESS OTHERWIS E INDICATED, ALL TESTING PERFORMED ATCLI NICAL PATHOLOGY LABOR [facility] [address] [place] [address] MERGED WITH [facility] DIRECTOR: PRUDENCE GEORGE M.D. CLIA NUMBER [id number] CAP [place]CREDITATION N O. [id number] CULTURE, [id number] 11:44:37SPECIMEN NUMBER: [id number] CULTURE, URINE SPECIMEN NUMBER: [id number] SOURCE: URINE REPORT STATUS: FINAL FINAL REPORT: 08/11/2021 NO SPECIMEN RECEIVED FOR TESTING. CHARGES DELETED.[id number] 07:28:30 Test Item Value Reference Range Interpretation Comments RPR RESULT (test TEST NOT PERFORMED NON-REACTIVE Unabl e to perform code = 3501) testing, specim en not received.Charge s adjusted as applicable. RPR TITER (test TEST NOT PERFORMED NOT INDIC. code = 3500) TITER CT/NG, NAAT, [id number] 07:28:24 Test Item Value Reference Range Interpretation Comments GONORRHEA, NAAT TEST NOT PERFORMED NEGATIVE Unable to perform (test code = testing, specim en [address]) not received.Charge s adjusted as applicable. CHLAMYDIA, NAAT TEST NOT PERFORMED NEGATIVE Unable to perform (test code = testing, [place] [address]) not received.Charge s adjusted as applicable. MATERNAL AFP FOR NTD [id number] 07:28:16 Test Item Value Reference Range Interpretation Comments INTERPRETATION (test TEST NOT Unable to code = 953221) PERFORMED perform testing, specimen not received.Charge s adjusted as applicable. Neural tube defect TEST NOT risk (test code = PERFORMED 50087) Neural tube defect TEST NOT interpretation (test PERFORMED code = 16186) DATE OF (test TEST NOT code = 2660) PERFORMED MATERNAL WEIGHT (test TEST NOT code = 2657) PERFORMED LBS INITIAL/REPEAT (test TEST NOT code = 605171) PERFORMED FAMILY HISTORY OF NTD TEST NOT (test code = 461217) PERFORMED INSULIN DEP. DIABETIC TEST NOT (test code = 2659) PERFORMED RACE (test code = TEST NOT 2658) PERFORMED SMOKER? (test code = TEST NOT 805089) PERFORMED NUMBER OF GESTATIONS TEST NOT (test code = 20425) PERFORMED GESTATIONAL AGE (test TEST NOT code = 2656) PERFORMED WEEKS DETERMINED BY: (test TEST NOT code = 2654) PERFORMED DATE OF SONOGRAM (test TEST NOT code = 99332) PERFORMED GESTATIONAL AGE AT TEST NOT SONO (test code = PERFORMED WEEKS 2653) DATE OF LMP (test code TEST NOT = 2652) PERFORMED ADJUST AFP M.O.M. TEST NOT (test code = 2661) PERFORMED M.O.M. AFP (test TEST NOT code = 56672) PERFORMED NG/ML VARICELLA ZOSTER [id number] 07:28:07 Test Item Value Reference Range Interpretation Comments VARICELLA ZOSTER TEST NOT SEE BELOW Unable to p erform IgG (test code = PERFORMED INDEX testing, specimen not 16774) received.Charge s adjusted as applicable. INTERPRETATION VZV IgG NEGATIVE . . . . . . . . . . . . INDEX <135 EQUIVOCAL. . . . . . . . . . . . INDEX 135-164 NOTE: CONSIDER RETEST ING IN A CLINICALLY YU ITABLE PERIOD OF TIME, NO SOONER THAN 1-2 WEEKS. POSITIVE . . . . . . . . . . . . INDEX >=165 HEMOGLOBIN [id number] 07:28:00 Test Item Value Reference Range Interpretation Comments HEMOGLOBIN A1 (test TEST NOT 95.0-98.5 Unable t o code = 2575) PERFORMED % perform testing, specimen not received.Charge s adjusted as applicable. HEMOGLOBIN A2 (test TEST NOT 1.6-3.7 code = 2576) PERFORMED % HEMOGLOBIN F () TEST NOT 0.0-2.0 (test code = 2722) PERFORMED % HEMOGLOBIN S (test TEST NOT NONE DETECTED code = 2724) PERFORMED % HEMOGLOBIN C (test TEST NOT NONE DETECTED code = 2726) PERFORMED % OTHER HEMOGLOBIN TEST NOT NONE DETECTED VARIANT (test code = PERFORMED % 48871) PATHOLOGIST'S TEST NOT INTERPRETATION (test PERFORMED code = 2577) DRUG ABUSE SCREEN 10 REFLEX [id number] 07:27:49 Test Item Value Reference Interpretation Comments Range COMMENTS (test code TEST NOT Unable t o perform = 3222) PERFORMED testing, specim en not received.Charge s adjusted as gely licable. Note: Validity testing suggests an alt ered, adulterated or compromised spe cimen. Analytic detect ion may be affected. Consideration s hould be given to repeat analysis on a newly acq uired specimen or cli nical correlation and medication revi ew. AMPHETAMINES (test TEST NOT NEGATIVE code = 3201) PERFORMED BARBITURATES (test TEST NOT NEGATIVE code = 3202) PERFORMED BENZODIAZEPINES TEST NOT NEGATIVE (test code = 3203) PERFORMED CANNABINOIDS (test TEST NOT NEGATIVE code = 3204) PERFORMED COCAINE METABOLITE TEST NOT NEGATIVE (test code = 3205) PERFORMED OPIATES (test code = TEST NOT NEGATIVE 3209) PERFORMED OXYCODONE (test code TEST NOT NEGATIVE = 16763) PERFORMED PHENCYCLIDINE (test TEST NOT NEGATIVE code = 5790) PERFORMED METHADONE (test code TEST NOT NEGATIVE = 3207) PERFORMED BUPRENORPHINE (test TEST NOT NEGATIVE code = 76140) PERFORMED SOURCE (test code = TEST NOT SEE BELOW FOR 372142) PERFORMED THRESHOLDS AND IMPORTANT METHOD NOTES * ANALYTE SCREENING CUTOF F CONFIRMATORY CUTOFF ___AMPHETAMINES 500 NG/ML 100 NG/MLBARBITURAT ES 200 NG/ML 100 NG/MLBENZODIAZE PINES 200 NG/ML 100 NG/MLCANNABINOI DS (THC) 20 NG/ML 15 NG/ MLCOCAINE METABOLITES 150 NG/ML 100 NG/MLOPIATE METABOLITES 300 NG/ML 100 NG/MLOXYCOD ONE 100 NG/ML 100 NG/MLPHENCYCLID INE (PCP) 25 NG/ML 25 NG/MLMETHADONE 300 NG/ML 100 NG/MLBUPREN ORPHINE 5 NG/ML 5 NG/ML N OTE: Screening metho dology is qualitative Enz yme Immunoassay.The screening metho d may be less sensitive for certain medicationsincl uding clonazepam and lorazepam in the benzodia zepine assay andtramad ol or fentanyl in the opiate assay, amongst others. Patientcomplian ce, hydration statu s, timing and dose of med ications, drugabsorption and specimen qualit y may affect screenin g assay.For clini benton discrepancies, consider directed testin g for specificcompoun ds or contact the lab oratory within specimen stability tofor hein for confirmatory te sting. This test is sp ecified for medicalpurp oses only. It is not valid for forensic us e. UNLESS OTHERWISE INDIC ATED, ALL TESTING PERFORM ED ATCLINICAL PATH OLOGY LABORATORIES, [place]. [address] [place] [address] LABORATORY DIRE CTOR: PRUDENCE THOMAS M.D. CLIA NUMBER [id number] [place] [id number] OBSTETRIC PANEL + [id number] 07:27:39 Test Item Value Reference Range Interpretation Comments WBC (test code = TEST NOT 3.5-11.0 Unable to p erform 1001) PERFORMED K/UL testing, spec imen not received.Ch arges adjusted as applicable. RBC (test code = TEST NOT 3.80-5.40 1002) PERFORMED M/UL HEMOGLOBIN (test TEST NOT 11.5-15.5 code = 1003) PERFORMED G/DL HEMATOCRIT (test TEST NOT 34.0-45.0 code = 1004) PERFORMED % MCV (test code = TEST NOT 80.0-99.0 1005) PERFORMED fL MCH (test code = TEST NOT 25.0-33.0 1006) PERFORMED PG MCHC (test code = TEST NOT 31.0-36.0 1007) PERFORMED G/DL RDW (test code = TEST NOT 11.5-15.0 1038) PERFORMED % NEUTROPHILS (test TEST NOT code = 1008) PERFORMED % LYMPHOCYTES (test TEST NOT code = 1010) PERFORMED % MONOCYTES (test TEST NOT code = 1011) PERFORMED % EOSINOPHILS (test TEST NOT code = 1012) PERFORMED % BASOPHILS (test TEST NOT code = 1013) PERFORMED % PLATELET COUNT TEST NOT 130-400 (test code = 1015) PERFORMED K/UL ABSOLUTE TEST NOT 1.50-7.50 NEUTROPHILS (test PERFORMED K/UL code = 1066) ABSOLUTE TEST NOT 1.00-4.00 LYMPHOCYTES (test PERFORMED K/UL code = 1067) ABSOLUTE MONOCYTES TEST NOT 0.20-1.00 (test code = 1068) PERFORMED K/UL ABSOLUTE TEST NOT 0.00-0.50 EOSINOPHILS (test PERFORMED K/UL code = 1040) ABSOLUTE BASOPHILS TEST NOT 0.00-0.20 (test code = 1069) PERFORMED K/UL BLOOD TYPE AND RH TEST NOT Unable to perform (test code = 3901) PERFORMED testing, specimen not received.Ch arges adjusted as applicable. A HISTORICAL ROBERTO RD CHECK FOR PREVI OUS RESULTS IS NOT PERFORMED.THESE RESULTS SHOULD BE CORRELATED WITH RESULTS OF PRIO R BLOODTYPING AND ANTIBODY SCREEN STUDIES. ANTIBODY SCREEN TEST NOT NEGATIVE Unable to pe rform (test code = 3902) PERFORMED testing, specimen not received.Ch arges adjusted as applicable. A HISTORICAL ROBERTO RD CHECK FOR PREVI OUS RESULTS IS NOT PERFORMED.THESE RESULTS SHOULD BE CORRELATED WITH RESULTS OF PRIO R BLOODTYPING AND ANTIBODY SCREEN STUDIES. RUBELLA ANTIBODY TEST NOT SEE BELOW Unable to p erform SCREEN (test code = PERFORMED IU/ML testi ng, specimen 4600) not received.Ch arges adjusted as applicable. INTERPRETATION RUBELLA IgG NON-REACTIVE/NO N-IMM UNE . . . . . . . IU/ML <10 REACTIVE/IMMUNE . . . . . . . . . . . IU/ML >=10 RUBELLA IgG INTERP TEST NOT REACTIVE (test code = 67600) PERFORMED HEPATITIS B SURF AG TEST NOT NON-REACTIVE (test code = 2739) PERFORMED HBSAG CONFIRMATION TEST NOT NON-REACTIVE TEST (test code = PERFORMED 274) RPR (test code = TEST NOT NON-REACTIVE 10950) PERFORMED RPR TITER (test TEST NOT NOT INDIC. code = 3500) PERFORMED TITER HIV 1/2 4TH GEN, TEST NOT NON-REACTIVE Unable to p erform RFLX CONF (test PERFORMED testing, spe cimen code = 3514) not received.Ch arges adjusted as applicable. HEPATITIS C REFLEX [id number] 07:27:39 Test Item Value Reference Range Interpretation Comments HEPATITIS C ANTIBODY (test TEST NOT PERFORMED NON-REACTIVE code = 4675) CT/NG, NAAT, [id number] 21:42:34 Test Item Value Reference Range Interpretation Comments GONORRHEA, NAAT NEGATIVE NEGATIVE IMPORTA NT NOTICE: SEE (test code = [place] [address]) [email or web address] [email or web address] Note: Assay methodology is nucleic acid amplification b y compress trucker m ediated amplification ( TMA) utilizing the A ptima Combo 2 Assay. CHLAMYDIA, NAAT NEGATIVE NEGATIVE IMPORTA NT NOTICE: SEE (test code = [place] [address]) [email or web address] [email or web address] Note: Assay methodology is nucleic acid amplification b y compress trucker m ediated amplification ( TMA) utilizing the A ptima Combo 2 Assay. HEMOGLOBIN [id number] 15:14:08 Test Item Value Reference Range Interpretation Comments HEMOGLOBIN A1 (test 97.1 % 95.0-98.5 code = 2575) HEMOGLOBIN A2 (test 2.9 % 1.6-3.7 code = 2576) HEMOGLOBIN F () 0.0 % 0.0-2.0 (test code = 2722) HEMOGLOBIN S (test NONE % NONE DETECTED code = 2724) HEMOGLOBIN C (test NONE % NONE DETECTED code = 2726) OTHER HEMOGLOBIN NONE DETEC % NONE DETECTED VARIANT (test code = 93527) PATHOLOGIST'S (NOTE) NO ABNORMAL INTERPRETATION (test HEMOGLO BINS code = 2577) IDENTIFIED. JAMI MONTERROSO M.D. MATERNAL AFP FOR NTD [id number] 07:16:27 Test Item Value Reference Range Interpretation Comments INTERPRETATION (test NOT AVAILABLE code = 542570) Neural tube defect (NOTE) Gestatio nal age is interpretation (test less th an 14 weeks. code = 42180) No reliable da ta exists for interpretation of neural tube def ects at this gestati onal age. Consider submitting a sa mple between 15 and 18 weeks gestation .THIS IS A MULTIPLE GESTATION PREGN BRIANNA (TRIPLETS OR MO RE). RISKASSESSMENT FOR OPEN NEURAL TUB E DEFECTS CAN NOT RELIABLE BE MAD E WHENA HAS 3 OR MORE GESTATIONS. DATE OF (test 1995 code = 2660) MATERNAL WEIGHT (test 214 LBS code = 2657) INITIAL/REPEAT (test INITIAL code = 220175) FAMILY HISTORY OF NTD NO (test code = 072079) INSULIN DEP. DIABETIC NO (test code = 2659) RACE (test code = 2658) SMOKER? (test code = NO 022121) NUMBER OF GESTATIONS 3 (test code = 11244) GESTATIONAL AGE (test 13.0 WEEKS code = 2656) DETERMINED BY: (test LMP code = 2654) DATE OF LMP (test 05/07/2021 code = 2652) AFP (test 56.9 NG/ML code = 41558) DRUG ABUSE SCREEN 10 REFLEX [id number] 03:53:01 Test Item Value Reference Interpretation Comments Range AMPHETAMINES (test SEE REFLEX NEGATIVE A code = 3201) TESTING BARBITURATES (test NEGATIVE NEGATIVE code = 3202) BENZODIAZEPINES NEGATIVE NEGATIVE (test code = 3203) CANNABINOIDS (test NEGATIVE NEGATIVE code = 3204) COCAINE METABOLITE NEGATIVE NEGATIVE (test code = 3205) OPIATES (test code = NEGATIVE NEGATIVE 3209) OXYCODONE (test code NEGATIVE NEGATIVE = 15777) PHENCYCLIDINE (test NEGATIVE NEGATIVE code = 6330) METHADONE (test code NEGATIVE NEGATIVE = 3207) BUPRENORPHINE (test NEGATIVE NEGATIVE code = 83877) SOURCE (test code = URINE SEE BELOW FOR 880573) THRESHOLDS AND IMPORTANT METHOD NOTES * ANALYTE SCREENING CUTOF F CONFIRMATORY CUTOFF ___AMPHETAMINES 500 NG/ML 100 NG/MLBARBITURAT ES 200 NG/ML 100 NG/MLBENZODIAZE PINES 200 NG/ML 100 NG/MLCANNABINOI DS (THC) 20 NG/ML 15 NG/ MLCOCAINE METABOLITES 150 NG/ML 100 NG/MLOPIATE METABOLITES 300 NG/ML 100 NG/MLOXYCOD ONE 100 NG/ML 100 NG/MLPHENCYCLID INE (PCP) 25 NG/ML 25 NG/MLMETHADONE 300 NG/ML 100 NG/MLBUPREN ORPHINE 5 NG/ML 5 NG/ML N OTE: Screening metho dology is qualitative Enz yme Immunoassay.The screening metho d may be less sensitive for certain medicationsincl uding clonazepam and lorazepam in the benzodia zepine assay andtramad ol or fentanyl in the opiate assay, amongst others. Patientcomplian ce, hydration statu s, timing and dose of med ications, drugabsorption and specimen qualit y may affect screenin g assay.For clini benton discrepancies, consider directed testin g for specificcompoun ds or contact the lab oratory within specimen stability tofor hein for confirmatory te sting. This test is sp ecified for medicalpurp oses only. It is not valid for forensic us e. OBSTETRIC PANEL + [id number] 03:00:35 Test Item Value Reference Range Interpretation Comments WBC (test code = 8.4 K/UL 3.5-11.0 1001) RBC (test code = 4.27 M/UL 3.80-5.40 1002) HEMOGLOBIN (test 12.2 G/DL 11.5-15.5 code = 1003) HEMATOCRIT (test 37.6 % 34.0-45.0 code = 1004) MCV (test code = 88.1 fL 80.0-99.0 1005) MCH (test code = 28.6 PG 25.0-33.0 1006) MCHC (test code = 32.4 G/DL 31.0-36.0 1007) RDW (test code = 14.4 % 11.5-15.0 1038) NEUTROPHILS (test 83.0 % code = 1008) LYMPHOCYTES (test 12.2 % code = 1010) MONOCYTES (test 4.4 % code = 1011) EOSINOPHILS (test 0.1 % code = 1012) BASOPHILS (test 0.1 % code = 1013) IMMATURE 0.2 % GRANYLOCYTES (test code = 1036) NUCLEATED RBCS 0.0 /100 WBC'S See_Comment [Automated message] (test code = 1065) The syste m which generated this result transmit yusef reference range : 0.0. The refere nce range was not u sed to interpret th is result as normal/abnormal . PLATELET COUNT 300 K/UL 130-400 (test code = 1015) ABSOLUTE 6.95 K/UL 1.50-7.50 NEUTROPHILS (test code = 1066) ABSOLUTE 1.02 K/UL 1.00-4.00 LYMPHOCYTES (test code = 1067) ABSOLUTE MONOCYTES 0.37 K/UL 0.20-1.00 (test code = 1068) ABSOLUTE 0.01 K/UL 0.00-0.50 EOSINOPHILS (test code = 1040) ABSOLUTE BASOPHILS 0.01 K/UL 0.00-0.20 (test code = 1069) ABS IMMATURE 0.02 K/UL 0.00-0.10 GRANULOCYTES (test code = 1020) ABS NUCLEATED RBCS 0.00 K/UL 0.00-0.11 (test code = 86121) BLOOD TYPE AND RH O POSITIVE A HISTORI [place]ENTON RECORD (test code = 3901) CHECK FOR PREVIOUS RESULTS IS NOT PERFORMED.THESE RESULTS SHOULD BE CORRELATED WITH RESULTS OF PRIO R BLOODTYPING AND ANTIBODY SCREEN STUDIES. ANTIBODY SCREEN NEGATIVE NEGATIVE A HISTORICA L RECORD (test code = 3902) CHECK FOR PREVIOUS RESULTS IS NOT PERFORMED.THESE RESULTS SHOULD BE CORRELATED WITH RESULTS OF PRIO R BLOODTYPING AND ANTIBODY SCREEN STUDIES. RUBELLA ANTIBODY 56 IU/ML SEE BELOW INTERPRETA TION SCREEN (test code = RUBELLA IgG 4600) NON-REACTIVE/NO N-IMM UNE . . . . . . . IU/ML <10 REACTIVE/IMMUNE . . . . . . . . . . . IU/ML >=10 RUBELLA IgG INTERP REACTIVE REACTIVE (test code = 46870) HEPATITIS B SURF AG NON-REACTIVE NON-REACTIVE (test code = 2739) RPR (test code = NON-REACTIVE NON-REACTIVE 97080) RPR TITER (test NOT INDIC. NOT INDIC. code = 3500) TITER HIV 1/2 4TH GEN, NON-REACTIVE NON-REACTIVE RFLX CONF (test code = 3514) HEPATITIS C REFLEX [id number] 03:00:35 Test Item Value Reference Range Interpretation Comments HEPATITIS C ANTIBODY (test code NON-REACTIVE NON-REACTIVE = 4675) [id number] 00:21:15 Test Item Value Reference Range Interpretation Comments RPR RESULT (test code = NON-REACTIVE NON-REACTIVE 3501) RPR TITER (test code = 3500) NOT INDIC. TITER NOT INDIC. VARICELLA ZOSTER [id number] 17:15:25 Test Item Value Reference Range Interpretation Comments VARICELLA ZOSTER IgG 87 INDEX SEE BELOW L INTERP RETATION VZV IgG (test code = 04579) NEGATIVE . . . . . . . . . . . . INDEX < 135 EQUIVOCAL. . . . . . . . . . . . INDEX 1 35-164 NOTE: CONSIDER RETESTING IN A CLINICALLY SUITABLE PERIOD OF TIME, NO SOONER THAN 1-2 WEEKS. POSITIVE . . . . . . . . . . . . INDEX >=165 CULTURE, [id number] 11:31:22SPECIMEN NUMBER: [id number] CULTURE, URINE SPECIMEN NUMBER: [id number] SPECIMEN COMMENT: URINE SOURCE:URINE REPORT STATUS: FINAL FINAL REPORT: 08/09/2021 10-50,000 CFU/ML MIXED UROGENITAL DOMINIQUE
[2022-04-11 23:02] LABS: Absolute Lymphocytes (CBC) 2.4 K/uL (0.7-4.9); Hematocrit 38.8 % (36.0-45.0); Lymphocytes % 27.6 % (15.3-44.8); MPV 8.9 fL (7.6-11.3); RBC Red Blood Cell Count 4.97 M/uL (3.86-4.86)
[2022-04-11 23:04] LABS: Urine Blood Negative (Negative); Urine Glucose Negative (Negative); Urine Protein Negative (Negative); Urine Specific Gravity 1.025 (1.005-1.030)
[2022-04-11] MEDS ORDERED: KETOROLAC 30 MG/ML INJ ONE (23:06)
[2022-04-11] MEDS ORDERED: NA CHLORIDE 0.9% 1,000 ML ONE (23:07)
[2022-04-11 23:18] LABS: ALT/SGPT 44 U/L (12-78); AST/SGOT 20 U/L (15-37); Albumin 3.8 g/dL (3.4-5.0); Alkaline Phosphatase 108 U/L (45-117); BUN Blood Urea Nitrogen 10 mg/dL (7-18); Bicarbonate 24 mmol/L (21-32); Bilirubin Direct < 0.1 mg/dL (0-0.2); Bilirubin Total 0.2 mg/dL (0.2-1.0); Glomerular Filtration Rate 103 ml/min (=/>90); Glucose Level 111 mg/dL (74-106); Lipase 136 U/L (73-393); Magnesium 2.2 mg/dL (1.8-2.4); Potassium 3.7 mmol/L (3.5-5.1); Protein, Total 7.6 g/dL (6.4-8.2); Sodium Level 141 mmol/L (136-145)
[2022-04-11 23:19] LABS: Troponin High Sensitivity < 3.0 pg/mL (<58.9)
[2022-04-11 23:21] LABS: Urine Specific Gravity/Preg 1.025 (1.005-1.030)
[2022-04-12] MEDS ORDERED: DICYCLOMINE HCL 10 MG CAP ONE ×2 (03:21→03:23)
--- NOTE | 2022-04-12 03:21 | ER ---
Nurse's Notes [facility] Name: Joya Cortez Age: 27 yrs Sex: Female : 1995 Arrival Date: 04/11/2022 Time: 22:06 Bed 6 Private MD: Diagnosis: Other cholelithiasis without obstruction;Chest pain, unspecified Presentation: 04/11 22:33 Chief complaint: Patient states: Chest pain began at 9 pm. Coronavirus screen: At this ld1 time, the client does not indicate any symptoms associated with coronavirus-19. Ebola Screen: No symptoms or risks identified at this time. Initial Sepsis Screen: Does the patient meet any 2 criteria? No. Patient's initial sepsis screen is negative. Does the patient have a suspected source of infection? No. Patient's initial sepsis screen is negative. Risk Assessment: Do you want to hurt yourself or someone else? Patient reports no desire to harm self or others. Onset of symptoms was April 11, 2022. 22:33 Method Of Arrival: Ambulatory ld1 22:33 Acuity: MICHELLE 3 ld1 Triage Assessment: 22:34 General: Appears in no apparent distress. uncomfortable, Behavior is anxious, fussy. ld1 Pain: Complains of pain in chest Pain does not radiate. Pain currently is 8 out of 10 on a pain scale. Quality of pain is described as sharp, shooting, throbbing. EENT: No signs and/or symptoms were reported regarding the EENT system. Neuro: Level of Consciousness is awake, alert, obeys commands, Oriented to person, place, time, situation. Cardiovascular: Capillary refill < 3 seconds Patient's skin is warm and dry. Rhythm is sinus rhythm. Respiratory: Airway is patent Respiratory effort is even, unlabored. GI: Abdomen is round non-distended. : No signs and/or symptoms were reported regarding the genitourinary system. Derm: No signs and/or symptoms reported regarding the dermatologic system. Musculoskeletal: No signs and/or symptoms reported regarding the musculoskeletal system. Historical: - Allergies: 22:34 AVOCADO (LAURUS PERSEA); ld1 - PMHx: 22:34 None; ld1 - PSHx: 22:34 section; ld1 - Immunization history:: Adult Immunizations up to date, Client reports receiving the 2nd dose of the Covid vaccine. - Social history:: Smoking status: Patient denies any tobacco usage or history of. Patient uses alcohol, occasionally. Screenin:30 Abuse screen: Denies threats or abuse. Nutritional screening: No deficits noted. jb4 Tuberculosis screening: No symptoms or risk factors identified. Fall Risk None identified. Assessment: 22:30 General: Appears in no apparent distress. uncomfortable, Behavior is calm, cooperative, jb4 appropriate for age, crying. Pain: Complains of pain in chest Pain does not radiate. Pain currently is 10 out of 10 on a pain scale. Quality of pain is described as pressure, stabbing, Pain began 1 hour ago. Is continuous. Neuro: Level of Consciousness is awake, alert, obeys commands, Oriented to person, place, time, situation. Cardiovascular: Patient's skin is warm and dry. Rhythm is sinus rhythm. Respiratory: Airway is patent Respiratory effort is even, unlabored, Respiratory pattern is regular, symmetrical. GI: No signs and/or symptoms were reported involving the gastrointestinal system. : No signs and/or symptoms were reported regarding the genitourinary system. EENT: No signs and/or symptoms were reported regarding the EENT system. Derm: Skin is intact, Skin is pink, warm \T\ dry. Musculoskeletal: Circulation, motion, and sensation intact. Range of motion: intact in all extremities. 04/12 00:00 Reassessment: Patient appears in no apparent distress at this time. Patient and/or jb4 family updated on plan of care and expected duration. Pain level reassessed. Patient is alert, oriented x 3, equal unlabored respirations, skin warm/dry/pink. 01:00 Reassessment: Patient appears in no apparent distress at this time. Patient and/or jb4 family updated on plan of care and expected duration. Pain level reassessed. Patient is alert, oriented x 3, equal unlabored respirations, skin warm/dry/pink. 02:33 Reassessment: Patient appears in no apparent distress at this time. Patient and/or jb4 family updated on plan of care and expected duration. Pain level reassessed. Patient is alert, oriented x 3, equal unlabored respirations, skin warm/dry/pink. Pt reports pain is 5/10 and is tolerable. 03:29 Reassessment: Patient appears in no apparent distress at this time. Patient and/or jb4 family updated on plan of care and expected duration. Pain level reassessed. Patient is alert, oriented x 3, equal unlabored respirations, skin warm/dry/pink. Vital Signs: 04/11 22:33 BP 123 / 76; Pulse 72; Resp 12; Temp 97.9(O); Pulse Ox 98% on R/A; Weight 97.98 kg; ld1 Height 5 ft. 7 in. (170.18 cm); Pain 8/10; 23:00 BP 121 / 84; Pulse 69; Resp 22; Pulse Ox 100% on R/A; jb4 04/12 00:00 BP 109 / 68; Pulse 62; Resp 19; Pulse Ox 100% on R/A; jb4 01:00 BP 114 / 80; Pulse 62; Resp 18 S; Pulse Ox 100% on R/A; jb4 02:20 BP 123 / 66; Pulse 66; Resp 17; Pulse Ox 100% on R/A; jb4 03:00 BP 118 / 76; Pulse 69; Resp 18; Pulse Ox 100% on R/A; jb4 04/11 22:33 Body Mass Index 33.83 (97.98 kg, 170.18 cm) ld1 ED Course: 04/11 22:06 Patient arrived in ED. bp1 22:15 Tj Metz PA is PHCP. cp 22:15 Shaila Can MD is Attending Physician. cp 22:30 Patient has correct armband on for positive identification. Placed in gown. Bed in low jb4 position. Call light in reach. Side rails up X 1. Client placed on continuous cardiac and pulse oximetry monitoring. NIBP monitoring applied. canine enforcement officer on. 22:30 Initial lab(s) drawn, by ut, sent to lab. Inserted saline lock: 18 gauge in right jb4 forearm, using aseptic technique. Blood collected. Patient maintains SpO2 saturation greater than 95% on room air. 22:34 Triage completed. ld1 22:34 Arm band placed on right wrist. ld1 22:56 XRAY Chest (1 view) In Process Unspecified. EDMS 23:04 Kendrick Valverde, RN is Primary Nurse. jb4 23:13 Troponin HS Sent. jb4 23:13 Magnesium Sent. jb4 23:13 LFT's Sent. jb4 23:14 Basic Metabolic Panel Sent. jb4 23:33 US Abdomen Limited: gallbladder In Process Unspecified. EDMS 04/12 02:23 Chest For Pe Angio In Process Unspecified. EDMS 02:24 Abdomen In Process Unspecified. EDMS 03:20 Thuan Elizabeth MD is Referral Physician. cp 03:30 No provider procedures requiring assistance completed. IV discontinued, intact, jb4 bleeding controlled, No redness/swelling at site. Pressure dressing applied. Administered Medications: 04/11 23:13 Drug: Ketorolac 30 mg Route: IVP; Site: right forearm; jb4 04/12 00:00 Follow up: Response: No adverse reaction; Marked relief of symptoms; Pain is decreased jb4 04/11 23:13 Drug: NS 0.9% 1000 ml Route: IV; Rate: 1 bolus; Site: right forearm; jb4 04/12 00:00 Follow up: Response: No adverse reaction; IV Status: Completed infusion; IV Intake: jb4 1000ml 03:25 Drug: Bentyl (dicyclomine) 20 mg Route: PO; ll3 03:30 Follow up: Response: Medication administered at discharge. jb4 Medication: 04/11 23:00 VIS not applicable for this client. jb4 Intake: 04/12 00:00 IV: 1000ml; Total: 1000ml. jb4 Outcome: 03:20 Discharge ordered by . cp 03:30 Discharged to home ambulatory. jb4 03:30 Condition: stable 03:30 Discharge instructions given to patient, Instructed on discharge instructions, follow up and referral plans. no drinking with medication, medication usage, Demonstrated understanding of instructions, follow-up care, medications. 03:30 Patient left the ED. jb4 Signatures: Dispatcher [employer] EDMS Tj Metz PA PA cp Bryson, James, RN RN jb4 Briana Davies Lauren RN RN ld1 Maddie Lynch RN RN ll3
--- NOTE | 2022-04-12 03:22 | EDPHYS ---
Physician Documentation [facility] Name: Joya Cortez Age: 27 yrs Sex: Female : 1995 Arrival Date: 04/11/2022 Time: 22:06 Bed 6 Private MD: ED Physician Shaila Can HPI: 04/11 22:45 This 27 yrs old Female presents to ER via Ambulatory with complaints of Chest cp Pain. 22:45 Onset: The symptoms/episode began/occurred today, about 2100. cp 22:45 The patient or guardian reports chest pain that is located primarily in the anterior cp chest wall, bilaterally. The pain radiates to back. 22:45 Associated signs and symptoms: Pertinent positives: shortness of breath, Pertinent cp negatives: cough, diaphoresis, lower extremity pain, lower extremity swelling, syncope. The chest pain is described as sharp, hugging. Duration: The patient or guardian reports a single episode, that is still ongoing, and unchanged. Historical: - Allergies: 22:34 AVOCADO (LAURUS PERSEA); ld1 - PMHx: 22:34 None; ld1 - PSHx: 22:34 section; ld1 - Immunization history:: Adult Immunizations up to date, Client reports receiving the 2nd dose of the Covid vaccine. - Social history:: Smoking status: Patient denies any tobacco usage or history of. Patient uses alcohol, occasionally. ROS: 22:50 Constitutional: Negative for body aches, chills, fever, poor PO intake. cp 22:50 Eyes: Negative for injury, pain, redness, and discharge. cp 22:50 ENT: Negative for drainage from ear(s), ear pain, sore throat, difficulty swallowing, difficulty handling secretions. 22:50 Cardiovascular: Positive for chest pain, Negative for edema, palpitations. 22:50 Respiratory: Positive for shortness of breath, at rest. Negative for cough, wheezing. 22:50 Abdomen/GI: Negative for vomiting, diarrhea, constipation, anorexia. 22:50 Back: Positive for radiated pain. 22:50 : Negative for urinary symptoms. 22:50 Neuro: Negative for altered mental status, dizziness, headache, numbness, syncope, weakness. 22:50 All other systems are negative. Exam: 22:50 ECG was reviewed by the Attending Physician. cp 22:55 Constitutional: The patient appears in no acute distress, alert, awake, cp non-diaphoretic, non-toxic, well developed, well nourished, obese, in obvious pain, uncomfortable. 22:55 Head/Face: Normocephalic, atraumatic. cp 22:55 Eyes: Periorbital structures: appear normal, Conjunctiva: normal, no exudate, no injection, Sclera: no appreciated abnormality, Lids and lashes: appear normal, bilaterally. 22:55 ENT: External ear(s): are unremarkable, Nose: is normal, Mouth: Lips: moist, Oral mucosa: pink and intact, moist, Posterior pharynx: Airway: no evidence of obstruction, patent. 22:55 Neck: ROM/movement: is normal, is supple, without pain, no range of motions limitations. 22:55 Chest/axilla: Inspection: normal, Palpation: is normal, no crepitus, no tenderness. 22:55 Cardiovascular: Rate: normal, Rhythm: regular, Edema: is not appreciated, JVD: is not appreciated. 22:55 Respiratory: the patient does not display signs of respiratory distress, Respirations: labored breathing, is not present, intercostal retractions, are absent, shallow respirations, that is moderate, Breath sounds: are clear throughout, no decreased breath sounds, no stridor, no wheezing. 22:55 Abdomen/GI: Inspection: abdomen appears normal, Bowel sounds: active, all quadrants, Palpation: soft, in all quadrants, moderate abdominal tenderness, in the epigastric area, rebound tenderness, is not appreciated, involuntary guarding, is not appreciated. 22:55 Back: pain, that is moderate, of the left scapular area, right scapular area, left subscapular area, right subscapular area and mid back area, ROM is painful, with all movement. 22:55 Skin: no rash present. 22:55 Neuro: Orientation: to person, place \T\ time. Mentation: is normal, Motor: moves all fours, strength is normal, Sensation: is normal. Vital Signs: 22:33 BP 123 / 76; Pulse 72; Resp 12; Temp 97.9(O); Pulse Ox 98% on R/A; Weight 97.98 kg; ld1 Height 5 ft. 7 in. (170.18 cm); Pain 8/10; 23:00 BP 121 / 84; Pulse 69; Resp 22; Pulse Ox 100% on R/A; jb4 04/12 00:00 BP 109 / 68; Pulse 62; Resp 19; Pulse Ox 100% on R/A; jb4 01:00 BP 114 / 80; Pulse 62; Resp 18 S; Pulse Ox 100% on R/A; jb4 02:20 BP 123 / 66; Pulse 66; Resp 17; Pulse Ox 100% on R/A; jb4 03:00 BP 118 / 76; Pulse 69; Resp 18; Pulse Ox 100% on R/A; jb4 04/11 22:33 Body Mass Index 33.83 (97.98 kg, 170.18 cm) ld1 MDM: 04/11 22:33 Patient medically screened. cp 23:00 Differential diagnosis: abnormal EKG, acute myocardial infarction, acute pericarditis, cp anxiety, cholecystitis, Cholelithiasis costochondritis, pancreatitis, pericarditis, pleurisy, pneumonia, pneumothorax. 04/12 03:20 Data reviewed: vital signs, nurses notes, lab test result(s), EKG, radiologic studies, cp CT scan, plain films, ultrasound. 03:20 Test interpretation: by ED physician or midlevel provider: ECG, plain radiologic cp studies. Counseling: I had a detailed discussion with the patient and/or guardian regarding: the historical points, exam findings, and any diagnostic results supporting the discharge/admit diagnosis, lab results, radiology results, the need for outpatient follow up, a family practitioner, a general surgeon, to return to the emergency department if symptoms worsen or persist or if there are any questions or concerns that arise at home. Response to treatment: the patient's symptoms have markedly improved after treatment, and as a result, I will discharge patient. 04/11 22:38 Order name: Basic Metabolic Panel; Complete Time: 23:29 cp 04/11 22:38 Order name: CBC with Diff; Complete Time: 23:06 cp 04/11 23:06 Interpretation: Normal except: RBC 4.97; MCV 78.0; MCH 25.2. cp 04/11 22:38 Order name: D-Dimer; Complete Time: 23:29 cp 04/11 22:38 Order name: LFT's; Complete Time: 23:29 cp 04/11 23:30 Interpretation: Normal except: GLOB 3.8; A/G 1.0. cp 04/11 22:38 Order name: Magnesium; Complete Time: 23:29 cp 04/11 22:38 Order name: Troponin HS; Complete Time: 23:29 cp 04/11 22:38 Order name: XRAY Chest (1 view) 04/11 22:38 Order name: Lipase; Complete Time: 23:29 04/11 23:04 Order name: Urine Dipstick-Ancillary; Complete Time: 23:06 EDWI 04/11 23:07 Order name: US Abdomen Limited: gallbladder 04/11 23:08 Order name: Urine --Ancillary (enter results); Complete Time: 23:29 ds4 04/12 01:27 Order name: Chest For Pe Angio EDWI 04/11 22:38 Order name: EKG; Complete Time: 22:38 04/11 22:38 Order name: Cardiac monitoring; Complete Time: 22:43 04/11 22:38 Order name: EKG - Nurse/Tech; Complete Time: 22:43 04/11 22:38 Order name: IV Saline Lock; Complete Time: 22:43 04/11 22:38 Order name: Labs collected and sent; Complete Time: 22:43 04/11 22:38 Order name: O2 Per Protocol; Complete Time: 22:43 04/11 22:38 Order name: O2 Sat Monitoring; Complete Time: 22:43 04/11 22:38 Order name: Urine Dipstick-Ancillary (obtain specimen); Complete Time: 23:04 04/11 22:38 Order name: Urine Test (obtain specimen); Complete Time: 23:04 04/12 01:27 Order name: Abdomen EDMS EC/26 22:50 Rate is 68 beats/min. Rhythm is regular. WA interval is normal. QRS interval is normal. cp QT interval is normal. T waves are Inverted in leads III, aVR. Interpreted by me. Reviewed by me. Administered Medications: 23:13 Drug: Ketorolac 30 mg Route: IVP; Site: right forearm; [facility] 04/12 00:00 Follow up: Response: No adverse reaction; Marked relief of symptoms; Pain is decreased [facility] 04/11 23:13 Drug: NS 0.9% 1000 ml Route: IV; Rate: 1 bolus; Site: right forearm; jb4 04/12 00:00 Follow up: Response: No adverse reaction; IV Status: Completed infusion; IV Intake: jb4 1000ml 03:25 Drug: Bentyl (dicyclomine) 20 mg Route: PO; ll3 03:30 Follow up: Response: Medication administered at discharge. jb4 Disposition: 03:45 STAFF ATTESTATION STATEMENT: I was immediately available onsite in the emergency sd2 department for consultation in the care of this patient. I did not see or examine this patient. Shaila Can MD. Disposition Summary: 04/12/22 03:20 Discharge Ordered Location: Home cp Problem: new cp Symptoms: have improved cp Condition: Stable cp Diagnosis - Other cholelithiasis without obstruction cp - Chest pain, unspecified cp Followup: cp - With: Thuan Elizabeth MD - When: 2 - 3 days - Reason: Recheck today's complaints Discharge Instructions: - Discharge Summary Sheet cp - Nonspecific Chest Pain, Adult cp - Cholelithiasis cp Forms: - Medication Reconciliation Form cp - Thank You Letter cp - Antibiotic Education cp - Prescription Opioid Use cp Prescriptions: - Ibuprofen 800 mg Oral Tablet - take 1 tablet by ORAL route every 8 hours As needed take with food; 30 tablet; cp Refills: 0, Product Selection Permitted - Zofran 4 mg Oral Tablet - take 1 tablet by ORAL route every 12 hours As needed; 20 tablet; Refills: 0, cp Product Selection Permitted - dicyclomine 20 mg Oral Tablet - take 1 tablet by ORAL route 4 times per day; 30 tablet; Refills: 0, Product cp Selection Permitted Signatures: Dispatcher [employer] EDWI Tj Metz PA PA cp Kendrick Valverde RN RN jb4 Hope Mckeon RN RN ld1 Maddie Lynch RN RN ll3 Shaila Can MD MD sd2 Corrections: (The following items were deleted from the chart) 02:36 02:34 Onset: The symptoms/episode began/occurred today, about 2100, cp cp
--- NOTE | 2022-04-12 14:43 | RAD REPORT ---
EXAM DESCRIPTION: CT - Abdomen Pelvis W Contrast - 04/12/2022 2:22 am CLINICAL HISTORY: 27 years, Female, CHEST PAIN COMPARISON: None TECHNIQUE: Contrast-enhanced images of the abdomen and pelvis were performed utilizing 2 mm slice th ickness at 2 mm interval reconstruction from the lung bases to the ischial tuberosities after the adm inistration of IV contrast. In addition multiplanar reformats in the coronal and sagittal plane were obtained and reviewed. This exam was performed according to our departmental dose-optimization protocol, which includes auto mated exposure control, adjustment of the mA and/or kV according to patient size and/or use of iterat avelino reconstruction technique. FINDINGS: The lung bases demonstrate to be clear. The liver, gallbladder, pancreas, spleen and adrenal glands demonstrate to be unremarkable, no focal lesions are noted. The kidneys demonstrate normal uptake of contrast media. No evidence for nephrolithiasis and/or hydro nephrosis. Grossly the unopacified stomach, small bowel and large bowel demonstrate to be within normal limits. There is no evidence for bowel dilatation/or free air. The appendix is normal. The urinary bladder demonstrate to be unremarkable. The uterus is unremarkable. There are no signif icant adnexal masses. The aorta demonstrate to be normal. There is no retroperitoneal lymphadenop athy. There is no ascites. The rest of the soft tissue and bony structures are within normal limits. IMPRESSION: No acute intra-abdominal process. Unremarkable CT scan of the abdomen and pelvis with contrast. Electronically signed by: Marko Drew MD 04/12/2022 3:07 AM CDT Due to temporary technical issues with the PACS/Fluency reporting system, reports are being signed by the in house radiologists without review as a courtesy to insure prompt reporting. The interpreting radiologist is fully responsible for the content of the report.
--- NOTE | 2022-04-12 14:49 | RAD REPORT ---
EXAM DESCRIPTION: CT - Chest For Pe Angio - 04/12/2022 2:21 am CLINICAL HISTORY: 27 years, Female, CHEST PAIN COMPARISON: 11/26/2020 TECHNIQUE: Multiple transaxial tomograms of the chest were obtained from the lung apices through the lung bases utilizing 2 mm slice thickness at 2 mm interval reconstruction after the administration o f large bolus of IV contrast for complete opacification of the pulmonary arteries. Subsequent 3-D maximum intensity projection images were generated in the coronal and sagittal plane f or review. This exam was performed according to our departmental dose-optimization protocol, which includes auto mated exposure control, adjustment of the mA and/or kV according to patient size and/or use of iterat avelino reconstruction technique. FINDINGS: The lungs parenchyma demonstrate to be clear. No masses, nodules and/or consolidations are identified. The trachea mainstem bronchus demonstrate to be normal. There is no significant pericardial or pleura l effusions. The thoracic aorta demonstrate to be unremarkable. The heart is normal in size. No evidence for right ventricular strain. There is no significant mediastinal and/or hilar lymphadenopathy. The axillary regions demonstrate to be clear. Pulmonary arteries demonstrate to be normal, no intraluminal defect are seen that would suggest pulmo nary embolus. The bone windows demonstrate no significant skeletal lesions. The visualized portions of the upper abdomen demonstrate to be unremarkable. IMPRESSION: No CT evidence for pulmonary embolus. Unremarkable CT scan of the chest with contrast. Electronically signed by: Marko Drew MD 04/12/2022 3:05 AM CDT Due to temporary technical issues with the PACS/Fluency reporting system, reports are being signed by the in house radiologists without review as a courtesy to insure prompt reporting. The interpreting radiologist is fully responsible for the content of the report.
--- NOTE | 2022-04-12 15:00 | RAD REPORT ---
EXAM DESCRIPTION: US - Abdomen Exam Limited - 04/11/2022 11:31 pm CLINICAL HISTORY: ABD PAIN. COMPARISON: None. TECHNIQUE: Ultrasound of the gallbladder with Doppler flow imaging was obtained. FINDINGS: Gallbladder: There is a calcified gallstone at the gallbladder neck which measures 1.4 cm. No gallbladder wall thickening. Negative sonographic Arnold's sign. Bile ducts: No dilatation of the intrahepatic bile ducts. The common bile duct measures 0.4 cm in caitlin meter at the liane hepatis. IMPRESSION: Calcified gallstone at the gallbladder neck. No gallbladder wall thickening. Negative so nographic Arnold's sign. Electronically signed by: Denise Coronado MD 04/11/2022 11:54 PM CDT Due to temporary technical issues with the PACS/Fluency reporting system, reports are being signed by the in house radiologists without review as a courtesy to insure prompt reporting. The interpreting radiologist is fully responsible for the content of the report.
--- NOTE | 2022-04-12 16:05 | RAD REPORT ---
EXAM DESCRIPTION: RAD - Chest Single View - 04/11/2022 10:55 pm CLINICAL HISTORY: CHEST PAIN. COMPARISON: None. TECHNIQUE: Single view AP chest radiograph(s). FINDINGS: The lungs are clear. No pulmonary infiltrate or edema identified. No pleural effusion. N o pneumothorax. Nonenlarged cardiomediastinal silhouette. No significant osseous abnormality. IMPRESSION: No acute cardiopulmonary abnormality identified by radiograph. Electronically signed by: Denise Coronado MD 04/11/2022 11:10 PM CDT Due to temporary technical issues with the PACS/Fluency reporting system, reports are being signed by the in house radiologists without review as a courtesy to insure prompt reporting. The interpreting radiologist is fully responsible for the content of the report.
--- NOTE | 2022-04-12 17:27 | EKG ---
Test Date: 2022-04-11 Test Time: 22:44:14 Skilled Labor: NATHALIE MEASUREMENT RESULTS: Intervals: Rate: 68 MO: 154 QRSD: 82 QT: 378 QTc: 401 [place]: P: 54 MO: 154 QRS: 50 T: 13 INTERPRETIVE STATEMENTS: Normal sinus rhythm Normal ECG Compared to ECG 11/26/2020 13:00:28 Sinus arrhythmia no longer present Electronically Signed On 04-12-22 17:26:23 CDT by Romeo Quintero
== END 2022-04-12 03:30 | disposition home or self-care (01) ==
LOC: ER 22:05
DX: R07.89 Other chest pain (principal); K80.80 Other cholelithiasis without obstruction; Z91.018 Allergy to other foods
CPT/HCPCS: 93005; 85025; 80048; 36415; 83735; 81025; 85379; 80076; 81003; 84484; 83690; 71275; 74177; 71045; 76705; Q9967; J7030